=== PATIENT | male | born 1965 | race African-American/Black ===

== ENCOUNTER 2019-04-20 22:20 | Emergency (ER) | payer MEDICAID, OTHER ==
[~2019-04-20] VITALS: Ht 188 cm; Wt 137.4 kg
[2019-04-20 22:40] VITALS: BP 135/84
[2019-04-20] MEDS ORDERED: Haloperidol 5mg/ml Inj IM ONE (23:00)
[2019-04-21 00:01] LABS: APPEARANCE,URINE CLEAR; BILIRUBIN, URINE NEGATIVE (NEGATIVE); GLUCOSE, URINE (UA) NEGATIVE (NEGATIVE); KETONES,URINE NEGATIVE (NEGATIVE); LEUKOCYTE ESTERASE ,URINE 1+ (NEGATIVE); NITRITE,URINE NEGATIVE (NEGATIVE); PH,URINE 5 (4.5-8.0); PROTEIN,URINE 2+ (NEGATIVE); UROBILINOGEN,URINE 8 MG/DL (0.0-1.0)
--- NOTE | 2019-04-21 00:01 | Emergency Room Report ---
History of Present Illness General Chief Complaint: Behavioral Complaint Source: Patient, Medical Record Present Illness HPI This is a 53-year-old male who was homeless and also history of schizophrenia and drug abuse. He is currently in the group home. This gentleman with chief complaint of altered mental status. His behavior is erratic and not answering question appropriately. There is no trauma. He is currently being treated for cellulitis and gangrene of his right great toe. Patient denies any alcohol or drugs. Denies any other complaint. Allergies: Coded Allergies: No Known Allergies (Unverified , 04/20/19) Patient History Past Medical History: see triage record, old chart reviewed, psych hx Past Surgical History: none Pertinent Family History: none Social History: Denies: smoking Immunizations: other Reviewed Nursing Documentation: PMH: Agreed; PSxH: Agreed Nursing Documentation-PMH Hx Cardiac Problems: Yes - CHF; AHD; Fe Defficiency Anemia; Thrombocytopenia Hx Diabetes: Yes History Of Psychiatric Problem: Yes - Bipolar;Schizophrenia; Major Depressive Disorder Review of Systems Eye: Denies: eye pain, blurred vision ENT: Denies: ear pain, nose congestion, throat swelling Respiratory: Denies: cough, shortness of breath Cardiovascular: Denies: chest pain, palpitations Gastrointestinal: Denies: abdominal pain, diarrhea, nausea, vomiting Musculoskeletal: Denies: back pain, joint pain Skin: Denies: rash Neurological: Denies: headache, numbness Endocrine: Denies: increased thirst, increased urine Hematologic/Lymphatic: Denies: easy bruising All Other Systems: negative except mentioned in HPI Physical Exam Vital Signs Date Time Temp Pulse Resp B/P (MAP) Pulse Ox O2 Delivery O2 Flow Rate FiO2 04/20/19 22:23 97.5 77 18 135/84 (101) 99 Room Air Vitals unremarkable Sp02 EP Interpretation: reviewed, normal General Appearance: well appearing, no apparent distress, alert Head: normocephalic, atraumatic Eyes: bilateral eye PERRL, bilateral eye EOMI ENT: hearing grossly normal, normal pharynx Neck: full range of motion, supple, no meningismus Respiratory: chest non-tender, lungs clear, normal breath sounds Cardiovascular #1: regular rate, rhythm, no murmur Gastrointestinal: normal bowel sounds, non tender, no mass, no organomegaly, no bruit, non-distended Musculoskeletal: back normal, gait/station normal, normal range of motion, other - Right foot: He has ulceration and drainage to the great toe. This is chronic. Neurologic: alert, oriented x3 Psychiatric: other - flat affect. Medical Decision Making Diagnostic Impression: Primary Impression: Behavioral change Additional Impressions: Cocaine abuse Methamphetamine abuse ER Course Patient presents with altered mental status. This probably secondary to cocaine and methamphetamine abuse. He did admit to methamphetamine abuse to the medical records field technician. No focal deficit. Not suicidal homicidal. Will discharge back to the group home. CT/MRI/US Diagnostic Results CT/MRI/US Diagnostic Results : Imaging Test Ordered: CT head Impression Per radiologist negative Last Vital Signs Date Time Temp Pulse Resp B/P (MAP) Pulse Ox O2 Delivery O2 Flow Rate FiO2 04/20/19 22:23 97.5 77 18 135/84 (101) 99 Room Air Status: improved Disposition: XFER SNF Condition: Stable Referrals: Dante Thompson MD (PCP) Additional Instructions: Abstain from drugs. Follow-up with your doctor in 7 days. Continue with current therapy for foot infection. Return if worse. Danny Harmon MD Apr 21, 2019 00:01
[2019-04-21 00:03] LABS: BASOPHILS % (AUTO) 0.7 % (0.0-2.0); HEMATOCRIT 37.4 % (42.0-52.0); HEMOGLOBIN 12.4 G/DL (14.2-18.0); LYMPHOCYTES % (AUTO) 31.1 % (20.0-45.0); MEAN CORPUSCULAR VOLUME 84 FL (80-99); MONOCYTES % (AUTO) 8.4 % (1.0-10.0); NEUTROPHILS % (AUTO) 58.7 % (45.0-75.0); PLATELET COUNT 199 K/UL (150-450); RED BLOOD COUNT 4.46 M/UL (4.70-6.10); WHITE BLOOD COUNT 7.9 K/UL (4.8-10.8)
[2019-04-21 00:06] LABS: COLOR,URINE YELLOW
[2019-04-21 00:17] LABS: ANION GAP 13 mmol/L (5-15); BLOOD UREA NITROGEN 27 mg/dL (7-18); CALCIUM 9.3 MG/DL (8.5-10.1); CARBON DIOXIDE 21 MMOL/L (21-32); CHLORIDE 106 MMOL/L (98-107); CREATININE 1.4 MG/DL (0.55-1.30); POTASSIUM 4.4 MMOL/L (3.5-5.1); SODIUM 140 MMOL/L (136-145)
--- NOTE | 2019-04-21 00:57 | Diagnostic Imaging Report ---
Indications: Altered mental status Technique: Spiral acquisitions obtained through the brain. Angled axial and coronal 5 x 5 mm slices were reconstructed. Total dose length product 1485.17 mGycm. CTDI vol(s) 70.38 mGy. Dose reduction achieved using automated exposure control Comparison: None. Findings: Ventricles are somewhat prominent for age. There is some periventricular deep white matter low-attenuation consistent with chronic microvascular ischemic change. Normal valdes-white differentiation. No acute intracranial hemorrhage or edema. No mass effect or midline shift. Intact calvarium. Visualized orbits and sinuses are unremarkable. The mastoids are clear Impression: Minimal senescent changes. Negative for acute intracranial bleed or mass effect This agrees with the preliminary interpretation provided overnight by [facility]. The CT scanner at [facility] is accredited by the [employer] and the scans are performed using protocols designed to limit radiation exposure to as low as reasonably achievable to attain images of sufficient resolution adequate for diagnostic evaluation.
[2019-04-21 02:07] VITALS: BP 137/86
[2019-04-21 03:36] VITALS: BP 114/98
== END 2019-04-21 03:42 ==
LOC: EDBD 22:20 → EMR 22:34
DX: F15.10 Other stimulant abuse, uncomplicated (principal); F91.9 Conduct disorder, unspecified; F14.10 Cocaine abuse, uncomplicated; R41.82 Altered mental status, unspecified; F20.9 Schizophrenia, unspecified; F31.9 Bipolar disorder, unspecified; I50.9 Heart failure, unspecified; E11.52 Type 2 diabetes mellitus with diabetic peripheral angiopathy with gangrene; I96 Gangrene, not elsewhere classified
CPT/HCPCS: 36415; 70450; 80048; 80307; 81001; 85025; 96372; 99284; G0480; J1630; 80329

== ENCOUNTER 2019-09-13 10:19 | Inpatient (IN) | payer MEDICAID, OTHER ==
[~2019-09-13] VITALS: Ht 188 cm; Wt 137.0 kg
[2019-09-13] MEDS ORDERED: OXYBUTYNIN CHLOR5 M1 ORAL (10:45)
[2019-09-13] MEDS ORDERED: ADALAT20 MG ORAL (10:45)
[2019-09-13] MEDS ORDERED: LISINOPRIL40 MG ORAL (10:45)
[2019-09-13] MEDS ORDERED: CYMBALTA30 MG ORAL (10:45)
[2019-09-13] MEDS ORDERED: METFORMIN HCL500 M1 ORAL (10:45)
[2019-09-13] MEDS ORDERED: ACETAMINOPHEN-1 EAC1 ORAL (10:45)
[2019-09-13] MEDS ORDERED: BUPROPION HCL100 MG ORAL (10:45)
--- NOTE | 2019-09-13 10:58 | Emergency Room Report ---
History of Present Illness General Chief Complaint: Wound Recheck/Suture Removal Source: Patient, Caregiver Present Illness HPI Patient presents the emergency room with friend who is reported to be information security consultant Patient himself has difficulty concentrating and providing appropriate input however information security consultant reports that the patient [facility] from [place] there was some difficulty Obtaining contact with insurance home health nurse finally did come out yesterday and reported that she was not able to care for this Given the area and infection Personal Injury Legal Assistant reports that the dressing was in place for the past 5 days and they had not seen the area themselves patient has had previous problems and infections with his feet Allergies: Coded Allergies: No Known Allergies (Unverified , 04/20/19) Patient History Past Medical History: see triage record Reviewed Nursing Documentation: PMH: Agreed; PSxH: Agreed Nursing Documentation-PMH Past Medical History: No History, Except For Hx Cardiac Problems: Yes - CHF; AHD; Fe Defficiency Anemia; Thrombocytopenia Hx Diabetes: Yes Review of Systems All Other Systems: negative except mentioned in HPI Physical Exam Vital Signs Date Time Temp Pulse Resp B/P (MAP) Pulse Ox O2 Delivery O2 Flow Rate FiO2 09/13/19 10:22 97.5 123 20 139/94 (109) 98 Room Air Sp02 EP Interpretation: reviewed, normal General Appearance: mild distress - Patient appears confused Head: normocephalic, atraumatic Eyes: bilateral eye PERRL, bilateral eye EOMI ENT: EOM grossly intact, normal pharynx Neck: supple Respiratory: lungs clear, no respiratory distress, no retraction Cardiovascular #1: tachycardia Gastrointestinal: non tender, soft Musculoskeletal: other - Significant anomaly to both feet worse on the right side with discharge from open wounds increased erythema and fluctuance in both lower extremity deviation on the right ankle, Neurologic: oriented x3 - Patient is able to be appropriately addressed with repeated questioning and is oriented to self and place and time however has difficulty forming words and appears mildly confused Skin: other - Significant edema erythema and fluctuance with discharge from both feet right side worse images are being obtained for medical record-keeping Lymphatic: no adenopathy Procedures Critical Care Time Critical Care Time 40 minutes for multiple re-evaluations critical presentation concerning for sepsis and cardiopulmonary arrest not including any procedural time Central Line Central Line : Consent: Emergent Central Line Lumen: triple Maximal Sterile Barrier Tech: yes cap, yes mask, yes sterile gown, yes sterile gloves, yes large sterile sheet, yes hand hygiene, yes chlorhexidine prep Central Line Postion: femoral (R) Anesthesia: Lidocaine cc's of anesthesia: 4 Complications: none Central Line Post Position: sutured Attempts: One Patient Tolerated: Well Complications: None Medical Decision Making Diagnostic Impression: Primary Impression: Sepsis Additional Impressions: Cellulitis in diabetic foot Severe sepsis ER Course Given the patient's history and presentation multiple differentials and consideration Including but not limited to diabetic foot cellulitis hyperglycemia,, osteomyelitis Patient presents and concerning fashion tachycardic significant Wound infections There was no IV established therefore central line was required please refer to the note for that Patient also shows positive amphetamine Further hydration and antibiotics are provided patient's admitting physician is in the emergency room and patient admitted for further care Labs Test 09/13/19 12:00 09/13/19 12:30 Urine Color Brown Urine Appearance Clear Urine pH 6 (4.5-8.0) Urine Specific Mason 1.015 (1.005-1.035) Urine Protein 2+ (NEGATIVE) Urine Glucose (UA) Negative (NEGATIVE) Urine Ketones Negative (NEGATIVE) Urine Blood 1+ (NEGATIVE) Urine Nitrite Negative (NEGATIVE) Urine Bilirubin Negative (NEGATIVE) Urine Urobilinogen 4 MG/DL (0.0-1.0) Urine Leukocyte Esterase 1+ (NEGATIVE) Urine RBC 0-2 /HPF (0 - 0) Urine WBC 0-2 /HPF (0 - 0) Urine Squamous Epithelial Cells Occasional /LPF Urine Amorphous Sediment Occasional /LPF (NONE) Urine Bacteria Occasional /HPF (NONE) Urine Opiates Screen Negative (NEGATIVE) Urine Barbiturates Screen Negative (NEGATIVE) Phencyclidine (PCP) Screen Negative (NEGATIVE) Urine Amphetamines Screen Positive (NEGATIVE) Urine Benzodiazepines Screen Negative (NEGATIVE) Urine Cocaine Screen Negative (NEGATIVE) Urine Marijuana (THC) Screen Positive (NEGATIVE) White Blood Count 7.4 K/UL (4.8-10.8) Red Blood Count 3.90 M/UL (4.70-6.10) Hemoglobin 11.3 G/DL (14.2-18.0) Hematocrit 33.8 % (42.0-52.0) Mean Corpuscular Volume 87 FL (80-99) Mean Corpuscular Hemoglobin 28.8 PG (27.0-31.0) Mean Corpuscular Hemoglobin Concent 33.3 G/DL (32.0-36.0) Red Cell Distribution Width 13.6 % (11.6-14.8) Platelet Count 264 K/UL (150-450) Mean Platelet Volume 5.7 FL (6.5-10.1) Neutrophils (%) (Auto) 70.6 % (45.0-75.0) Lymphocytes (%) (Auto) 17.7 % (20.0-45.0) Monocytes (%) (Auto) 10.2 % (1.0-10.0) Eosinophils (%) (Auto) 0.8 % (0.0-3.0) Basophils (%) (Auto) 0.7 % (0.0-2.0) Prothrombin Time 11.1 SEC (9.30-11.50) Prothromb Time International Ratio 1.0 (0.9-1.1) Activated Partial Thromboplast Time 27 SEC (23-33) Sodium Level 133 MMOL/L (136-145) Potassium Level 4.4 MMOL/L (3.5-5.1) Chloride Level 101 MMOL/L (98-107) Carbon Dioxide Level 23 MMOL/L (21-32) Anion Gap 9 mmol/L (5-15) Blood Urea Nitrogen 14 mg/dL (7-18) Creatinine 0.9 MG/DL (0.55-1.30) Estimat Glomerular Filtration Rate > 60 mL/min (>60) Glucose Level 93 MG/DL (74-106) Lactic Acid Level 1.20 mmol/L (0.4-2.0) Calcium Level 8.7 MG/DL (8.5-10.1) Total Bilirubin 1.2 MG/DL (0.2-1.0) Direct Bilirubin 0.8 MG/DL (0.0-0.3) Aspartate Amino Transf (AST/SGOT) 49 U/L (15-37) Alanine Aminotransferase (ALT/SGPT) 53 U/L (12-78) Alkaline Phosphatase 82 U/L (46-116) Total Creatine Kinase 193 U/L (26-308) Creatine Kinase MB 2.2 NG/ML (0.0-3.6) Creatine Kinase MB Relative Index 1.1 Troponin I 0.000 ng/mL (0.000-0.056) Pro-B-Type Natriuretic Peptide 97 pg/mL (0-125) Total Protein 8.2 G/DL (6.4-8.2) Albumin 2.8 G/DL (3.4-5.0) Globulin 5.4 g/dL Albumin/Globulin Ratio 0.5 (1.0-2.7) Lipase 1088 U/L (73-393) Rhythm Strip Diag. Results EP Interpretation: yes Rate: 110 Rhythm: no PVC's, no ectopy, other - Sinus tach Chest X-Ray Diagnostic Results Chest X-Ray Diagnostic Results : Chest X-Ray Ordered: Yes # of Views/Limited/Complete: 1 View Indication: Chest Pain EP Interpretation: Yes Interpretation: no pneumothorax, other - Lower lobe atelectasis, consider infiltrate Impression: Other - Left lower lobe atelectasis consider infiltrate Electronically Signed by: Keesha Murphy DO Other X-Ray Diagnostic Results Other X-Ray Diagnostic Results #1: X-Ray ordered: right Foot # of Views/Limited Vs Complete: 3 View Indication: Pain EP Interpretation: Yes Interpretation: no dislocation, no fractures, other - Soft tissue changes Impression: Other - Soft tissue changes Electronically Signed by: Keesha Murphy DO Other X-Ray Diagnostic Results #2: X-Ray ordered: Left foot # of Views/Limited Vs Complete: 3 View Indication: Pain EP Interpretation: Yes Interpretation: no dislocation, no fractures, other - Soft tissue changes Impression: Other - Soft tissue changes Electronically Signed by: Keesha Murphy DO Last Vital Signs Date Time Temp Pulse Resp B/P (MAP) Pulse Ox O2 Delivery O2 Flow Rate FiO2 09/13/19 10:22 97.5 123 20 139/94 (109) 98 Room Air Status: improved Disposition: ADMITTED INPATIENT Condition: Critical Keesha Murphy DO Sep 13, 2019 10:58
[2019-09-13] MEDS ORDERED: cefTRIAXone 1 GM in NS 55 ML IVPB ONE (11:00)
[2019-09-13] MEDS ORDERED: Vancomycin 1.5gm/NS Premix 275 ML IVPB ONE (11:00)
[2019-09-13 11:14] VITALS: BP 164/98
[2019-09-13] MEDS ORDERED: Lidocaine 1% Plain 30 ml INJ ONE (12:15)
--- NOTE | 2019-09-13 12:36 | Diagnostic Imaging Report ---
EXAM: XR Chest, 1 View CLINICAL HISTORY: CP TECHNIQUE: Frontal view of the chest. COMPARISON: None FINDINGS: Hardware: None. Lungs/pleura: Left basilar opacity. No focal consolidation. No pleural effusion or pneumothorax. Heart/mediastinum: Normal. No cardiomegaly. Soft tissues: Unremarkable. Bones: No acute fracture. Upper abdomen: Normal. IMPRESSION: Left basilar opacity may represent atelectasis versus pneumonia.
--- NOTE | 2019-09-13 12:37 | Diagnostic Imaging Report ---
EXAM: XR Left Foot Complete, 3 or More Views CLINICAL HISTORY: SWELL TECHNIQUE: Frontal, lateral and oblique views of the left foot. COMPARISON: None FINDINGS: Bones/joints: No displaced fracture or dislocation identified. Osteopenia. Plantar calcaneal spur. Degenerative changes of the left first MTP joint. Degenerative changes of the midfoot and hindfoot. Soft tissues: Soft tissue swelling. IMPRESSION: 1. No displaced fracture or dislocation identified. 2. Soft tissue swelling.
--- NOTE | 2019-09-13 12:39 | Diagnostic Imaging Report ---
EXAM: XR Right Foot Complete, 3 or More Views CLINICAL HISTORY: SWELL TECHNIQUE: Frontal, lateral and oblique views of the right foot. COMPARISON: None FINDINGS: Bones/joints: No displaced fracture or dislocation identified. Osteopenia. Plantar calcaneal spur. Degenerative changes of the right first MTP joint. Degenerative changes of the midfoot. Soft tissues: Soft tissue swelling. Question soft tissue wound along the medial midfoot. IMPRESSION: 1. No displaced fracture or dislocation identified. 2. Soft tissue swelling. Question soft tissue wound along the medial midfoot.
[2019-09-13 12:42] LABS: APPEARANCE,URINE CLEAR; BILIRUBIN, URINE NEGATIVE (NEGATIVE); COLOR,URINE BROWN; GLUCOSE, URINE (UA) NEGATIVE (NEGATIVE); KETONES,URINE NEGATIVE (NEGATIVE); LEUKOCYTE ESTERASE ,URINE 1+ (NEGATIVE); NITRITE,URINE NEGATIVE (NEGATIVE); PH,URINE 6 (4.5-8.0); PROTEIN,URINE 2+ (NEGATIVE); UROBILINOGEN,URINE 4 MG/DL (0.0-1.0)
[2019-09-13 12:52] LABS: BASOPHILS % (AUTO) 0.7 % (0.0-2.0); EOSINOPHILS % (AUTO) 0.8 % (0.0-3.0); HEMATOCRIT 33.8 % (42.0-52.0); HEMOGLOBIN 11.3 G/DL (14.2-18.0); LYMPHOCYTES % (AUTO) 17.7 % (20.0-45.0); MEAN CORPUSCULAR VOLUME 87 FL (80-99); MONOCYTES % (AUTO) 10.2 % (1.0-10.0); NEUTROPHILS % (AUTO) 70.6 % (45.0-75.0); PLATELET COUNT 264 K/UL (150-450); RED CELL DISTRIBUTION WIDTH 13.6 % (11.6-14.8); WHITE BLOOD COUNT 7.4 K/UL (4.8-10.8)
[2019-09-13 13:01] LABS: ANION GAP 9 mmol/L (5-15); BLOOD UREA NITROGEN 14 mg/dL (7-18); CALCIUM 8.7 MG/DL (8.5-10.1); CARBON DIOXIDE 23 MMOL/L (21-32); CHLORIDE 101 MMOL/L (98-107); CREATININE 0.9 MG/DL (0.55-1.30); POTASSIUM 4.4 MMOL/L (3.5-5.1); SODIUM 133 MMOL/L (136-145)
[2019-09-13 13:30] LABS: ALANINE AMINOTRANSFERASE 53 U/L (12-78); ALBUMIN 2.8 G/DL (3.4-5.0); ALBUMIN/GLOBULIN RATIO 0.5 (1.0-2.7); ALKALINE PHOSPHATASE 82 U/L (46-116); ASPARTATE AMINO TRANSFERASE 49 U/L (15-37); BILIRUBIN,TOTAL 1.2 MG/DL (0.2-1.0); CKMB 2.2 NG/ML (0.0-3.6); CREATINE KINASE 193 U/L (26-308)
[2019-09-13 13:35] LABS: BILIRUBIN,DIRECT 0.8 MG/DL (0.0-0.3)
[2019-09-13 15:45] VITALS: BP 149/80
[2019-09-13 20:00] VITALS: BP 125/75
[2019-09-13] MEDS: NovoLOG Insulin Flexpen SUBQ SCH (20:13)
[2019-09-13] MEDS: Piperacillin/Tazobactam 3.375 GM in NS 110 ML IVPB SCH (20:44)
[2019-09-13] MEDS ORDERED: traMADol 50mg tab ORAL PRN (20:45)
[2019-09-13] MEDS ORDERED: Dyna-Hex 2% Top Sol 2oz TOPIC SCH ×2 (21:00→21:45)
[2019-09-13] MEDS: Heparin 5000 units/ml inj SUBQ SCH (21:54)
--- NOTE | 2019-09-13 22:15 | History and Physical Report ---
DATE OF ADMISSION: 09/13/2019 HISTORY OF PRESENT ILLNESS: This is a 54-year-old male, who came from the emergency room where he came from home where he has multiple sores on both leg, edema, generalized weakness, obtunded. Also the patient's drug screen positive for PCP and other substance. The patient is combative, cannot give any history. He also had a sore on the right foot and looks like he is not able to care himself and not taking care of himself. PAST MEDICAL HISTORY: Cannot be obtained, but from the records diabetes, hypertension, history of substance abuse. MEDICATIONS: None. ALLERGIES: None. FAMILY HISTORY: Noncontributory. SOCIAL HISTORY: Lives at home by himself. PHYSICAL EXAMINATION: GENERAL: This is elderly overweight male, currently in bed, combative, cannot give any history. VITAL SIGNS: Blood pressure was , pulse 110, respirations 18 to 24, temperature, no fever. SKIN: Poor skin turgor. HEENT: Eyes are open. NECK: Supple. CHEST: Bilateral few crackles. CARDIOVASCULAR: Regular rhythm. No gallop. No murmur. ABDOMEN: Soft. Positive bowel sounds. EXTREMITIES: Right leg has multiple sores on the ankle edema. GENITOURINARY: Deferred. LABORATORY DATA: White counts are high. BUN and creatinine also slightly high. Drug screen positive for crack. ASSESSMENT: 1. Multiple sores on the foot. 2. Drug abuse. 3. Diabetes. 4. Hypertension. 5. Altered mental status, probably secondary to the drugs. PLAN: We will admit on VADIM. Start IV fluid, IV antibiotics, sliding scale, Accu-Chek, 2 g sodium diet. Consider Surgery consult as well as Podiatry consult. Shubham Perez M.D. DR: SERA JOB#: [id number] CC:
[2019-09-13] MEDS ORDERED: Morphine Sulfate 2mg/ml Inj(IV/IM USE ONLY) IVP PRN (22:45)
[2019-09-13] MEDS ORDERED: Metoprolol Tartrate 100mg tab ORAL ONE (23:15)
[2019-09-13] MEDS: Metoprolol Tartrate 100mg tab ORAL SCH (23:24)
--- NOTE | 2019-09-13 23:30 | Consultation ---
DATE OF CONSULTATION: 09/13/2019 CARDIOLOGY CONSULTATION CONSULTING PHYSICIAN: Ronal Reeves M.D. REASON FOR CONSULTATION: Tachycardia. HISTORY OF PRESENT ILLNESS: This is a 54-year-old who resides [facility]. He was admitted with multiple leg sores and associated pain. He also has had generalized weakness and altered mentation. He has had episodes of agitation. He had a positive drug screen for PCP and marijuana. PAST MEDICAL HISTORY: Includes type 2 diabetes, hypertension, neurogenic bladder, and substance abuse. ALLERGIES: None. MEDICATIONS: Reviewed. FAMILY HISTORY: Noncontributory. SOCIAL HISTORY: Notable for substance abuse as noted above. He denies alcohol use. REVIEW OF SYSTEMS: Cannot be reliably obtained. PHYSICAL EXAMINATION: GENERAL: Moderately obese awake and alert. VITAL SIGNS: Blood pressure 106/60, heart rate 150, respiratory rate 20, and afebrile. SKIN: Notable for wounds on his foot including the ankle. Dressings are now in place, but pictures are noted. HEENT: Oropharynx clear. NECK: Supple. LUNGS: Clear. CARDIAC: Regular rhythm. Rapid rate. Normal S1 and S2. ABDOMEN: Soft. EXTREMITIES: Trace edema. LABORATORY DATA: White count 7.4 and hemoglobin 11.3. Sodium 133, potassium 4.4, BUN 14, creatinine 0.9, and bicarbonate 23. Lactic acid 1.2. Troponin negative. CK 193. Albumin 2.8. Lipase 1088. IMPRESSION: 1. Dehydration. 2. Hyponatremia. 3. Substance abuse. 4. Wound infection. 5. Tachycardia due to beta-john withdrawal and pain. 6. Hypertensive heart disease. 7. Type 2 diabetes mellitus. PLAN: 1. Resume beta-john. 2. Pain control. 3. Antimicrobials. 4. Wound care. 5. DVT prophylaxis. 6. Venous duplex scan if not already done to assess for possible lower extremity thrombosis. 7. Cautious hydration. Ronal Reeves M.D. DR: MONALISA JOB#: [id number] CC:
[2019-09-14] VITALS: BP 113/60
[2019-09-14] MEDS: Vancomycin 1.5gm/NS Premix IVPB SCH ×3 (02:05→18:07)
[2019-09-14 04:00] VITALS: BP 128/73
[2019-09-14] MEDS: Piperacillin/Tazobactam 3.375 GM in NS 110 ML IVPB SCH ×3 (06:24→21:19)
[2019-09-14] MEDS: NovoLOG Insulin Flexpen SUBQ SCH ×4 (06:26→20:19)
[2019-09-14] MEDS: Heparin 5000 units/ml inj SUBQ SCH ×3 (06:26→21:11)
[2019-09-14 08:00] VITALS: BP 155/87
[2019-09-14] MEDS ORDERED: METOPROLOL TAR100 M1 ORAL (08:13)
[2019-09-14] MEDS ORDERED: DULoxetine 30mg cap ORAL SCH (09:00)
[2019-09-14] MEDS ORDERED: Oxybutynin 5mg tab ORAL SCH (09:00)
[2019-09-14] MEDS ORDERED: Lisinopril 20mg tab ORAL SCH (09:00)
[2019-09-14] MEDS ORDERED: BuPROPion SR 100mg tab ORAL SCH (09:00)
[2019-09-14] MEDS: Metoprolol Tartrate 100mg tab ORAL SCH ×2 (09:05→20:25)
[2019-09-14] MEDS: metFORMIN 500mg tab ORAL SCH ×2 (11:43→16:30)
[2019-09-14] MEDS ORDERED: LORazepam 0.5mg tab ORAL PRN ×2 (11:45→23:45)
[2019-09-14 12:00] VITALS: BP 131/68
--- NOTE | 2019-09-14 13:59 | Consultation ---
History of Present Illness General Date patient seen: Sep 14, 2019 Chief Complaint: Wound Recheck/Suture Removal Present Illness HPI 54-year-old male who came from the emergency room at [facility] with multiple wounds on both leg, edema, generalized weakness, obtunded. Noted to have drug screen positive for PCP and other substance. The patient is combative, cannot give any history. He also had a sore on the right foot and looks like he is not able to care himself and not taking care of himself. surgery called to evaluate and assist with care. labs noted, imaging reviewed, exam completed Allergies: Coded Allergies: No Known Allergies (Unverified , 04/20/19) Medication History Scheduled Bupropion Hcl* (Bupropion Hcl*), 100 MG ORAL DAILY, (Reported) Duloxetine Hcl* (Cymbalta*), 30 MG ORAL BID, (Reported) Lisinopril* (Lisinopril*), 40 MG ORAL DAILY, (Reported) Metformin Hcl* (Metformin Hcl*), 500 MG ORAL TWICE A DAY, (Reported) Metoprolol Tartrate* (Metoprolol Tartrate*), 100 MG ORAL EVERY 12 HOURS, ( Reported) Nifedipine (Nifedipine*), 30 MG ORAL DAILY, (Reported) Oxybutynin Chloride (Oxybutynin Chloride), 5 MG ORAL DAILY, (Reported) Scheduled PRN Acetaminophen With Codeine (T#3) (Tylenol #3 Tab*), 1 TAB ORAL BID PRN for Pain Scale (3-5), (Reported) Patient History Limited by: medical condition History Provided By: PMD Healthcare decision maker Resuscitation status Advanced Directive on File Past Medical/Surgical History Past Medical/Surgical History: (1) Sepsis (2) Cellulitis in diabetic foot Review of Systems All Other Systems: negative except mentioned in HPI ROS Narrative cannot obtain given medical condition Physical Exam General Appearance: no apparent distress Lines, tubes and drains: peripheral HEENT: mucous membranes moist Neck: normal inspection Respiratory/Chest: no respiratory distress, no accessory muscle use Cardiovascular/Chest: normal rate Abdomen: soft, no organomegaly, no mass Extremities: inflammation, slow capillary refill, trace edema, other Skin Exam: warm/dry Neurologic: alert, disoriented, other Last 24 Hour Vital Signs Date Time Temp Pulse Resp B/P (MAP) Pulse Ox O2 Delivery O2 Flow Rate FiO2 09/14/19 12:00 90 09/14/19 12:00 99.4 85 24 131/68 (89) 95 09/14/19 09:05 128/73 09/14/19 09:05 98 128/73 09/14/19 08:00 99.5 103 23 155/87 (109) 96 09/14/19 08:00 99 09/14/19 07:50 Room Air 09/14/19 04:00 98 09/14/19 04:00 98.4 97 20 128/73 (91) 100 09/14/19 00:00 101.0 144 20 113/60 (77) 100 09/13/19 23:24 144 113/60 09/13/19 23:21 145 09/13/19 21:00 Room Air 09/13/19 20:00 99.9 140 24 125/75 (92) 98 09/13/19 19:13 128 09/13/19 18:27 97.5 114 19 164/98 100 Room Air 09/13/19 15:50 Room Air 09/13/19 15:45 98.8 117 20 149/80 (103) 100 Intake and Output 09/13/19 09/14/19 19:00 07:00 Intake Total 1585.0 ml Output Total 300 ml 1100 ml Balance -300 ml 485.0 ml Intake Oral 500 ml IV Total 1085.0 ml Output Urine Total 300 ml 1100 ml # Bowel Movements 1 1 Height (Feet): 6 Height (Inches): 2.00 Weight (Pounds): 302 Medications Current Medications Medications (Trade) Dose Ordered Sig/Lamont Route PRN Reason Start Time Stop Time Status Last Admin Dose Admin Acetaminophen (Tylenol) 650 mg Q6H PRN ORAL Mild Pain/Temp > 100.5 09/14/19 08:00 10/14/19 07:59 Bupropion HCl (Wellbutrin SR) 100 mg DAILY ORAL 09/14/19 09:00 10/14/19 08:59 09/14/19 09:05 Chlorhexidine Gluconate (Crystal-Hex 2%) 1 applic DAILY@1999 TOPIC 09/13/19 21:00 10/13/19 20:59 09/13/19 21:51 Dextrose (Dextrose 50%) 25 ml Q30M PRN IV Hypoglycemia 09/13/19 19:00 2/25/20 18:59 Dextrose (Dextrose 50%) 50 ml Q30M PRN IV Hypoglycemia 09/13/19 19:00 10/13/19 18:59 Duloxetine HCl (Cymbalta) 30 mg DAILY ORAL 09/15/19 09:00 10/15/19 08:59 Heparin Sodium (Porcine) (Heparin 5000 units/ml) 5,000 units EVERY 8 HOURS SUBQ 09/13/19 22:00 10/13/19 21:59 09/14/19 06:26 Insulin Aspart (NovoLOG) BEFORE MEALS AND HS SUBQ 09/13/19 21:00 10/13/19 20:59 Lisinopril (PriniviL) 40 mg DAILY ORAL 09/14/19 09:00 10/14/19 08:59 09/14/19 09:05 Lorazepam (Ativan) 2 mg Q6H PRN ORAL For Anxiety 09/14/19 11:45 09/21/19 11:44 Metformin HCl (Glucophage) 500 mg BIDLS ORAL 09/14/19 11:30 10/14/19 11:29 09/14/19 11:43 Metoprolol Tartrate (Lopressor) 100 mg EVERY 12 HOURS ORAL 09/13/19 22:45 10/13/19 22:44 09/14/19 09:05 Morphine Sulfate (Morphine Sulfate) 2 mg Q6H PRN IVP For breakthru Pain 09/13/19 22:45 09/20/19 22:44 Ondansetron HCl (Zofran) 4 mg Q6H PRN IVP Nausea & Vomiting 09/13/19 19:00 10/13/19 18:59 Oxybutynin Chloride (Ditropan) 5 mg DAILY ORAL 09/14/19 09:00 10/14/19 08:59 09/14/19 09:05 Piperacillin Sod/ Tazobactam Sod 3.375 gm/Sodium Chloride 110 ml @ 27.5 mls/hr EVERY 8 HOURS IVPB 09/13/19 20:00 09/18/19 19:59 09/14/19 06:24 Quetiapine Fumarate (SEROqueL) 50 mg TID ORAL 09/14/19 13:00 10/14/19 12:59 Sodium Chloride 1,000 ml @ 100 mls/hr Q10H IV 09/13/19 23:00 09/15/19 18:00 09/14/19 09:06 Tramadol HCl (Ultram) 50 mg Q4H PRN ORAL For Pain 09/13/19 20:45 09/20/19 20:44 09/13/19 20:46 Vancomycin HCl (Vanco rx to dose) 1 ea DAILY PRN MISC Per rx protocol 09/13/19 19:00 10/13/19 18:59 Vancomycin/Sodium Chloride 275 ml @ 137.5 mls/ hr Q8HR@0200,1000,1800 IVPB 09/14/19 02:00 09/19/19 01:59 09/14/19 11:43 Assessment/Plan Problem List: (1) Sepsis Assessment & Plan: febrile, tachycardic, htn elevated lip abnormal lft's chronic wounds will provide local wound care needs improved hygiene okay for diet Abdominal US ordered will follow with recs. thank you ICD Codes: A41.9 - Sepsis, unspecified organism SNOMED: 13922589 (2) Cellulitis in diabetic foot ICD Codes: E11.628 - Type 2 diabetes mellitus with other skin complications; L03.119 - Cellulitis of unspecified part of limb SNOMED: 260771540, [id number] (3) Pancreatitis Assessment & Plan: see above us ordered trend labs thank you ICD Codes: K85.90 - Acute pancreatitis without necrosis or infection, unspecified SNOMED: 10982837 Farhat Joaquin Sep 14, 2019 13:59
[2019-09-14 16:00] VITALS: BP 115/73
--- NOTE | 2019-09-14 18:45 | Progress Note ---
DATE: 09/14/2019 SUBJECTIVE: The patient is a 54-year-old male came to the emergency room for multiple ulcers on the leg and altered. Drug screen was positive. The patient is currently still sleeping, wakes up and asking for pain medication and more fluid. PHYSICAL EXAMINATION: VITAL SIGNS: Blood pressure is 131/68, pulse 85, respirations 24, no fever. HEENT: NAD. CHEST: Bilateral clear. CARDIOVASCULAR: Regular rhythm. No gallop. No murmur. ABDOMEN: Soft. EXTREMITIES: Right leg had multiple abscess. GENITOURINARY: Deferred. LABORATORY AND DIAGNOSTIC DATA: White count 7.4, hemoglobin 11. Chemistry panel, sodium 133, potassium 4.4, BUN 14, creatinine 0.9. Lipase . X-ray of foot showing no displaced fracture, dislocation, soft tissue swelling. Chest x-ray showing left bibasilar atelectasis, pneumonia. ASSESSMENT: 1. Cellulitis. 2. Leg ulcer. 3. Substance abuse. 4. Hypertension. 5. Diabetes. 6. Depression. PLAN: 1. Continue current treatment. 2. The patient is on vancomycin. 3. Continue metoprolol. 4. Consider Podiatry consult . 5. Consider Psych consult. Shubham Perez M.D. DR: Jam JOB#: [id number] CC:
[2019-09-14 20:00] VITALS: BP 95/58
--- NOTE | 2019-09-14 20:01 | Progress Note ---
DATE: 09/14/2019 CARDIOLOGY PROGRESS NOTE SUBJECTIVE: The patient continues to complain of leg pain. He had been restarted last night on an additional pain medication as well as his beta-john therapy. His heart rates have improved. PHYSICAL EXAMINATION: VITAL SIGNS: Blood pressure 131/68, pulse 85, respirations 24, and T max 100.6. LUNGS: Bilateral breath sounds. HEART: Regular rhythm and rate. Normal S1, S2. ABDOMEN: Soft. EXTREMITIES: Trace dependent edema. Wounds have dressing in place noted. IMPRESSION: 1. Lower extremity wounds. 2. Secondary sinus tachycardia, resolved. 3. Cocaine abuse. 4. Peripheral artery disease. 5. Acute and chronic pain. 6. Moderate protein-calorie malnutrition. PLAN: 1. Continue antimicrobials and wound care. 2. Recheck laboratory studies. 3. Discontinue intravenous fluids once rehydrated. 4. Protein supplements. 5. Maintenance dose beta-john. 6. Discontinue telemetry. Ronal Reeves M.D. DR: BELEN JOB#: [id number] CC:
[2019-09-14] MEDS: Dyna-Hex 2% Top Sol 2oz TOPIC SCH (21:08)
[2019-09-15] VITALS: BP 117/75
[2019-09-15] MEDS ORDERED: Vancomycin 1.5gm/NS Premix 275 ML IVPB SCH (02:00)
[2019-09-15 04:00] VITALS: BP 149/86
[2019-09-15 04:39] LABS: BASOPHILS % (AUTO) 0.6 % (0.0-2.0); EOSINOPHILS % (AUTO) 1.4 % (0.0-3.0); HEMATOCRIT 31.5 % (42.0-52.0); HEMOGLOBIN 10.5 G/DL (14.2-18.0); LYMPHOCYTES % (AUTO) 37.4 % (20.0-45.0); MEAN CORPUSCULAR VOLUME 87 FL (80-99); MONOCYTES % (AUTO) 11.4 % (1.0-10.0); NEUTROPHILS % (AUTO) 49.3 % (45.0-75.0); PLATELET COUNT 212 K/UL (150-450); RED BLOOD COUNT 3.61 M/UL (4.70-6.10); RED CELL DISTRIBUTION WIDTH 14.1 % (11.6-14.8); WHITE BLOOD COUNT 5.9 K/UL (4.8-10.8)
[2019-09-15 04:57] LABS: INR 1.1 (0.9-1.1)
[2019-09-15 05:01] LABS: ALANINE AMINOTRANSFERASE 35 U/L (12-78); ALBUMIN 2.1 G/DL (3.4-5.0); ALBUMIN/GLOBULIN RATIO 0.4 (1.0-2.7); ALKALINE PHOSPHATASE 68 U/L (46-116); AMYLASE 74 U/L (25-115); ANION GAP 6 mmol/L (5-15); ASPARTATE AMINO TRANSFERASE 34 U/L (15-37); BILIRUBIN,TOTAL 0.9 MG/DL (0.2-1.0); BLOOD UREA NITROGEN 9 mg/dL (7-18); CALCIUM 8.1 MG/DL (8.5-10.1); CARBON DIOXIDE 24 MMOL/L (21-32); CHLORIDE 109 MMOL/L (98-107); SODIUM 139 MMOL/L (136-145)
[2019-09-15] MEDS: Piperacillin/Tazobactam 3.375 GM in NS 110 ML IVPB SCH ×2 (05:17→13:08)
[2019-09-15] MEDS: NovoLOG Insulin Flexpen SUBQ SCH ×4 (05:22→21:00)
[2019-09-15] MEDS: Heparin 5000 units/ml inj SUBQ SCH ×3 (05:33→21:03)
[2019-09-15 08:00] VITALS: BP 150/89
[2019-09-15] MEDS ORDERED: DULoxetine 30mg cap ORAL SCH (09:00)
[2019-09-15] MEDS: DULoxetine 30mg cap ORAL SCH (09:25)
[2019-09-15] MEDS: Metoprolol Tartrate 100mg tab ORAL SCH ×2 (09:26→21:02)
[2019-09-15] MEDS: Oxybutynin 5mg tab ORAL SCH (09:26)
[2019-09-15] MEDS: BuPROPion SR 100mg tab ORAL SCH (09:26)
[2019-09-15] MEDS: Lisinopril 20mg tab ORAL SCH (09:27)
--- NOTE | 2019-09-15 09:43 | Diagnostic Imaging Report ---
Indication: Right leg pain and right leg wound Technique: Grayscale and duplex images of the bilateral lower extremity veins Comparison: none Findings: Bilaterally, grayscale and duplex images demonstrate no evidence of intraluminal thrombus. Normal phasic Doppler waveforms, demonstrating normal augmentation response and no evidence of valvular insufficiency. Normal compressibility Impression: No evidence of lower extremity deep venous thrombosis bilaterally
--- NOTE | 2019-09-15 10:15 | Consultation ---
DATE OF CONSULTATION: 09/14/2019 CONSULTING PHYSICIAN: Fany Reyes M.D. HISTORY OF PRESENT ILLNESS: This is a 54-year-old male with multiple medical issues including cellulitis, sepsis, admitted to the hospital for medical stabilization. The patient's urine toxicology is positive for methamphetamines. The patient is denying any drug use. The patient is having episodes of agitation. The patient also has been smoking weed. He denies using any drugs. PAST PSYCHIATRIC HISTORY: Denies any history of psychiatric disorder. PAST MEDICAL HISTORY: Diabetes and hypertension. ALLERGIES: No known drug allergies. SUBSTANCE ABUSE HISTORY: As noted above. MENTAL STATUS EXAMINATION: The patient is alert and oriented to times, self, place, situation, and date. Mood is anxious. Affect is flat. Thought process is concrete. Thought content, no suicidal or homicidal ideation. Cognition is intact. Insight and judgment is poor. ASSESSMENT: [place] I 1. Psychotic disorder, NOS. 2. Agitation. 3. Methamphetamine use [place] II Deferred. [place] III Low. PLAN: 1. We will start the patient on Seroquel. 2. We will provide the patient with reality orientation and supportive therapy. Fany Reyes M.D. DR: JADE JOB#: [id number] CC: MALU
--- NOTE | 2019-09-15 11:07 | Diagnostic Imaging Report ---
Indication: Abnormal liver function tests, elevated lipase Technique: Gaitan-scale and duplex images of the upper abdomen were obtained Comparison: none Findings: Exam is somewhat limited due to body habitus and bowel gas. Gallbladder is unremarkable, without stones, wall thickening, nor pericholecystic fluid. Sonographic Alatorre's sign is negative. Common bile duct measures 6 mm in diameter. No intrahepatic biliary ductal dilatation. Liver demonstrates normal echogenicity, no focal abnormality. It is somewhat enlarged. Portal vein and hepatic veins are patent. Pancreas is unremarkable. Spleen is poorly seen, grossly unremarkable. Left kidney measures 11.9 cm in length. Right kidney measures 11.2 cm length. Both kidneys demonstrate normal echogenicity. There is no hydronephrosis. There is a small right renal cyst demonstrated. . Abdominal aorta is partially obscured by bowel gas, visualized portions are non-aneurysmal . Impression: Somewhat limited exam, as described Negative for gallstones or dilated bile ducts Borderline hepatomegaly Incidental finding of small right renal cyst. Note inability to visualize portions of the abdominal aorta and suboptimal visualization of the spleen
[2019-09-15] MEDS: metFORMIN 500mg tab ORAL SCH ×3 (11:30→17:31)
[2019-09-15 12:00] VITALS: BP 126/74
[2019-09-15] MEDS: Vancomycin 1 GM in NS 275 ML IVPB SCH ×2 (13:06→22:41)
--- NOTE | 2019-09-15 13:27 | Diagnostic Imaging Report ---
Indication: Cough Technique: One view of the chest Comparison: 09/13/2019 Findings: Lungs and pleural spaces are clear. Previously reported left basilar opacity is not evident currently The heart size is normal. The aorta is tortuous and calcified and ectatic Impression: No acute process
--- NOTE | 2019-09-15 13:48 | Surgery Progress Note ---
Surgery Progress Note Subjective Additional Comments Patient seen and examined bedside. More responsive and cooperative today. Patient states that no one's been taking care of his wounds and the other people are fully responsible for and that he can do anything on his own and other people need take care of it and if they do not continue to get worse. Patient states that he has no interest in being involved in it and that he anticipates and expects other people to take care of it as it is their responsibility in their duties. Denies any nausea vomiting fever chills. I had a long discussion with the patient regards to the history of this wound. Patient states that it for months now and I believe this may actually be even a little longer as he will lose to it. I discussed with patient eventual plans in the past and he states that he has been recommended to have entered pension including a BKA possible AKA on the right lower extremity. He states that at that time he had no interest and still currently has no interest and will always refused to have amputation. Patient states he has no interest in ever having an amputation and that if people would continue to do their job and make it better he would get better on its own Objective Last 24 Hour Vital Signs Date Time Temp Pulse Resp B/P (MAP) Pulse Ox O2 Delivery O2 Flow Rate FiO2 09/15/19 09:27 150/89 09/15/19 09:26 106 150/89 09/15/19 09:00 Room Air 09/15/19 08:00 98.4 106 18 150/89 (109) 96 09/15/19 04:00 98.1 99 20 149/86 (107) 98 09/15/19 00:00 97.9 84 16 117/75 (89) 95 09/14/19 21:00 Room Air 09/14/19 20:25 92 95/58 09/14/19 20:00 97.1 92 20 95/58 (70) 92 09/14/19 16:00 100.6 69 23 115/73 (87) 96 09/14/19 16:00 72 I&O Intake and Output 09/14/19 09/15/19 19:00 07:00 Intake Total 600 ml 55.0 ml Output Total 700 ml 900 ml Balance -100 ml -845.0 ml Intake Oral 600 ml IV Total 55.0 ml Output Urine Total 700 ml 900 ml # Bowel Movements 1 Dressing: saturated Wound: other Drains: other Cardiovascular: RSR Respiratory: decreased breath sounds Abdomen: soft, present bowel sounds, non-distended Extremities: edema, tenderness, other Laboratory Tests Test 09/15/19 01:00 09/15/19 04:00 Vancomycin Level Trough 19.9 ug/mL (5.0-12.0) H White Blood Count 5.9 K/UL (4.8-10.8) Red Blood Count 3.61 M/UL (4.70-6.10) L Hemoglobin 10.5 G/DL (14.2-18.0) L Hematocrit 31.5 % (42.0-52.0) L Mean Corpuscular Volume 87 FL (80-99) Mean Corpuscular Hemoglobin 29.0 PG (27.0-31.0) Mean Corpuscular Hemoglobin Concent 33.3 G/DL (32.0-36.0) Red Cell Distribution Width 14.1 % (11.6-14.8) Platelet Count 212 K/UL (150-450) Mean Platelet Volume 5.0 FL (6.5-10.1) L Neutrophils (%) (Auto) 49.3 % (45.0-75.0) Lymphocytes (%) (Auto) 37.4 % (20.0-45.0) Monocytes (%) (Auto) 11.4 % (1.0-10.0) H Eosinophils (%) (Auto) 1.4 % (0.0-3.0) Basophils (%) (Auto) 0.6 % (0.0-2.0) Erythrocyte Sedimentation Rate 80 MM/HR (0-20) H Prothrombin Time 11.2 SEC (9.30-11.50) Prothromb Time International Ratio 1.1 (0.9-1.1) Activated Partial Thromboplast Time 31 SEC (23-33) Sodium Level 139 MMOL/L (136-145) Potassium Level 4.0 MMOL/L (3.5-5.1) Chloride Level 109 MMOL/L (98-107) H Carbon Dioxide Level 24 MMOL/L (21-32) Anion Gap 6 mmol/L (5-15) Blood Urea Nitrogen 9 mg/dL (7-18) Creatinine 1.0 MG/DL (0.55-1.30) Estimat Glomerular Filtration Rate > 60 mL/min (>60) Glucose Level 86 MG/DL (74-106) Calcium Level 8.1 MG/DL (8.5-10.1) L Total Bilirubin 0.9 MG/DL (0.2-1.0) Aspartate Amino Transf (AST/SGOT) 34 U/L (15-37) Alanine Aminotransferase (ALT/SGPT) 35 U/L (12-78) Alkaline Phosphatase 68 U/L (46-116) C-Reactive Protein, Quantitative 6.6 mg/dL (0.00-0.90) H Total Protein 6.9 G/DL (6.4-8.2) Albumin 2.1 G/DL (3.4-5.0) L Globulin 4.8 g/dL Albumin/Globulin Ratio 0.4 (1.0-2.7) L Amylase Level 74 U/L (25-115) Lipase 299 U/L (73-393) Plan Problems: (1) Sepsis Assessment & Plan: febrile, tachycardic, htn elevated lip abnormal lft's chronic wounds will provide local wound care needs improved hygiene okay for diet Abdominal US ordered will follow with recs. thank you (2) Cellulitis in diabetic foot Assessment & Plan: Patient states that no one's been taking care of his wounds and the other people are fully responsible for and that he can do anything on his own and other people need take care of it and if they do not continue to get worse. Patient states that he has no interest in being involved in it and that he anticipates and expects other people to take care of it as it is their responsibility in their duties. Denies any nausea vomiting fever chills. I had a long discussion with the patient regards to the history of this wound. Patient states that it for months now and I believe this may actually be even a little longer as he will lose to it. I discussed with patient eventual plans in the past and he states that he has been recommended to have entered pension including a BKA possible AKA on the right lower extremity. He states that at that time he had no interest and still currently has no interest and will always refused to have amputation. Patient states he has no interest in ever having an amputation and that if people would continue to do their job and make it better he would get better on its own Pt presented on admission with large ulceration LLE and ulcers L knee. Clusters of ulcers L knee. Base of each wound is moist and viable. Small amt sanguineous exudate noted.Periwound skin tone is darker without induration or change in skin temp. At distal lower ext ,pt noted to have large ulcer medial/posterior/lateral extending to R heel and dorsal R foot. Base of wound is shallow with scattered fibrinous slough. Areas of soft necrosis noted to R heel. Borders that are irregular and macerated. Moderate amt brownish exudate. Wound is malodorous. Tx.Plan: Cleanse wound with Dakin's willie 0.25%. Apply Xeroform to wounds . Cover with ABD pads and wrap with Kerlix from Base of toes Daily and prn. Swab wounds L knee with Betadine. Cover with Optifoam drsg.Change Daily and prn. (3) Pancreatitis Assessment & Plan: see above Findings: Exam is somewhat limited due to body habitus and bowel gas. Gallbladder is unremarkable, without stones, wall thickening, nor pericholecystic fluid. Sonographic Alatorre's sign is negative. Common bile duct measures 6 mm in diameter. No intrahepatic biliary ductal dilatation. Liver demonstrates normal echogenicity, no focal abnormality. It is somewhat enlarged. Portal vein and hepatic veins are patent. Pancreas is unremarkable. Spleen is poorly seen, grossly unremarkable. Left kidney measures 11.9 cm in length. Right kidney measures 11.2 cm length. Both kidneys demonstrate normal echogenicity. There is no hydronephrosis. There is a small right renal cyst demonstrated. . Abdominal aorta is partially obscured by bowel gas, visualized portions are non-aneurysmal . Impression: Somewhat limited exam, as described Negative for gallstones or dilated bile ducts Borderline hepatomegaly Incidental finding of small right renal cyst. Note inability to visualize portions of the abdominal aorta and suboptimal visualization of the spleen trend labs thank you trending down improving RaulzulaypalomoKandace duqueya Sep 15, 2019 13:48
[2019-09-15] MEDS: traMADol 50mg tab ORAL PRN (13:54)
--- NOTE | 2019-09-15 14:13 | Diagnostic Imaging Report ---
Indication: Abdominal pain Technique: Supine view of the abdomen Comparison: none Findings: Unremarkable bowel gas pattern. There is a right groin central venous catheter. No masses or unusual calcifications. The visualized lung bases demonstrate interstitial disease Impression: Findings as noted. No definite acute process
[2019-09-15 16:00] VITALS: BP 145/77
[2019-09-15] MEDS ORDERED: Dakin's 0.125% Soln (Quarter Strength) 16oz TOPIC SCH (16:00)
[2019-09-15] MEDS: Dakin's 0.25% (Half Strength) 16oz TOPIC SCH (19:03)
[2019-09-15 20:00] VITALS: BP 140/83
--- NOTE | 2019-09-15 20:03 | Infectious Diseases Prog Note ---
Assessment/Plan Assessment/Plan Full consult dictated: A) 1) sepsis, gram + bacteremia, right foot cellulitis/wound infection with pus , ? osteomyelitis, ? necrotizing fasciitis/gas gangrene 2) pmh noted 3) allergies - nkda P) 1) meropenem, clindamycin, vancomycin 2) d/w surgery - will likely need amputation but patient does not want one 3) check MRI, labs and cultures 4) thank you Subjective Allergies: Coded Allergies: No Known Allergies (Unverified , 04/20/19) Objective Vital Signs Last 24 Hour Vital Signs Date Time Temp Pulse Resp B/P (MAP) Pulse Ox O2 Delivery O2 Flow Rate FiO2 09/15/19 16:00 98.4 80 17 145/77 (99) 96 09/15/19 12:00 98.5 76 16 126/74 (91) 97 09/15/19 09:27 150/89 09/15/19 09:26 106 150/89 09/15/19 09:00 Room Air 09/15/19 08:00 98.4 106 18 150/89 (109) 96 09/15/19 04:00 98.1 99 20 149/86 (107) 98 09/15/19 00:00 97.9 84 16 117/75 (89) 95 09/14/19 21:00 Room Air 09/14/19 20:25 92 95/58 09/14/19 20:00 97.1 92 20 95/58 (70) 92 Height (Feet): 6 Height (Inches): 2.00 Weight (Pounds): 302 Microbiology Date/Time Source Procedure Growth Status 09/13/19 12:30 Blood Blood Culture - Preliminary Resulted 09/13/19 12:30 Blood Blood Culture - Preliminary Resulted Laboratory Tests Test 09/15/19 01:00 09/15/19 04:00 Vancomycin Level Trough 19.9 ug/mL (5.0-12.0) H White Blood Count 5.9 K/UL (4.8-10.8) Red Blood Count 3.61 M/UL (4.70-6.10) L Hemoglobin 10.5 G/DL (14.2-18.0) L Hematocrit 31.5 % (42.0-52.0) L Mean Corpuscular Volume 87 FL (80-99) Mean Corpuscular Hemoglobin 29.0 PG (27.0-31.0) Mean Corpuscular Hemoglobin Concent 33.3 G/DL (32.0-36.0) Red Cell Distribution Width 14.1 % (11.6-14.8) Platelet Count 212 K/UL (150-450) Mean Platelet Volume 5.0 FL (6.5-10.1) L Neutrophils (%) (Auto) 49.3 % (45.0-75.0) Lymphocytes (%) (Auto) 37.4 % (20.0-45.0) Monocytes (%) (Auto) 11.4 % (1.0-10.0) H Eosinophils (%) (Auto) 1.4 % (0.0-3.0) Basophils (%) (Auto) 0.6 % (0.0-2.0) Erythrocyte Sedimentation Rate 80 MM/HR (0-20) H Prothrombin Time 11.2 SEC (9.30-11.50) Prothromb Time International Ratio 1.1 (0.9-1.1) Activated Partial Thromboplast Time 31 SEC (23-33) Sodium Level 139 MMOL/L (136-145) Potassium Level 4.0 MMOL/L (3.5-5.1) Chloride Level 109 MMOL/L (98-107) H Carbon Dioxide Level 24 MMOL/L (21-32) Anion Gap 6 mmol/L (5-15) Blood Urea Nitrogen 9 mg/dL (7-18) Creatinine 1.0 MG/DL (0.55-1.30) Estimat Glomerular Filtration Rate > 60 mL/min (>60) Glucose Level 86 MG/DL (74-106) Calcium Level 8.1 MG/DL (8.5-10.1) L Total Bilirubin 0.9 MG/DL (0.2-1.0) Aspartate Amino Transf (AST/SGOT) 34 U/L (15-37) Alanine Aminotransferase (ALT/SGPT) 35 U/L (12-78) Alkaline Phosphatase 68 U/L (46-116) C-Reactive Protein, Quantitative 6.6 mg/dL (0.00-0.90) H Total Protein 6.9 G/DL (6.4-8.2) Albumin 2.1 G/DL (3.4-5.0) L Globulin 4.8 g/dL Albumin/Globulin Ratio 0.4 (1.0-2.7) L Amylase Level 74 U/L (25-115) Lipase 299 U/L (73-393) Current Medications Medications (Trade) Dose Ordered Sig/Lamont Route PRN Reason Start Time Stop Time Status Last Admin Dose Admin Acetaminophen (Tylenol) 650 mg Q6H PRN ORAL Mild Pain/Temp > 100.5 09/14/19 20:00 10/14/19 07:59 Bupropion HCl (Wellbutrin SR) 100 mg DAILY ORAL 09/15/19 09:00 10/14/19 08:59 09/15/19 09:26 Chlorhexidine Gluconate (Crystal-Hex 2%) 1 applic DAILY@1999 TOPIC 09/14/19 20:00 10/13/19 20:59 09/14/19 21:08 Dextrose (Dextrose 50%) 25 ml Q30M PRN IV Hypoglycemia 09/14/19 19:30 10/13/19 18:59 Dextrose (Dextrose 50%) 50 ml Q30M PRN IV Hypoglycemia 09/14/19 19:30 10/13/19 18:59 Duloxetine HCl (Cymbalta) 30 mg DAILY ORAL 09/15/19 09:00 10/15/19 08:59 09/15/19 09:25 Heparin Sodium (Porcine) (Heparin 5000 units/ml) 5,000 units EVERY 8 HOURS SUBQ 09/14/19 22:00 10/13/19 21:59 09/15/19 13:14 Insulin Aspart (NovoLOG) BEFORE MEALS AND HS SUBQ 09/14/19 21:00 10/13/19 20:59 Lisinopril (PriniviL) 40 mg DAILY ORAL 09/15/19 09:00 10/14/19 08:59 09/15/19 09:27 Lorazepam (Ativan) 2 mg Q6H PRN ORAL For Anxiety 09/14/19 23:45 09/21/19 11:44 Metformin HCl (Glucophage) 500 mg BIDLS ORAL 09/15/19 11:30 10/14/19 11:29 09/15/19 17:31 Metoprolol Tartrate (Lopressor) 100 mg EVERY 12 HOURS ORAL 09/14/19 21:00 10/13/19 22:44 09/15/19 09:26 Morphine Sulfate (Morphine Sulfate) 2 mg Q6H PRN IVP For breakthru Pain 09/14/19 22:45 09/20/19 22:44 Ondansetron HCl (Zofran) 4 mg Q6H PRN IVP Nausea & Vomiting 09/15/19 01:00 10/13/19 18:59 Oxybutynin Chloride (Ditropan) 5 mg DAILY ORAL 09/15/19 09:00 10/14/19 08:59 09/15/19 09:26 Piperacillin Sod/ Tazobactam Sod 3.375 gm/Sodium Chloride 110 ml @ 27.5 mls/hr EVERY 8 HOURS IVPB 09/14/19 22:00 09/18/19 19:59 09/15/19 13:08 Quetiapine Fumarate (SEROqueL) 50 mg TID ORAL 09/15/19 09:00 10/14/19 12:59 09/15/19 17:31 Sodium Hypochlorite (Dakin's Half Strength) 1 applic DAILY TOPIC 09/15/19 18:00 10/15/19 17:59 09/15/19 19:03 Tramadol HCl (Ultram) 50 mg Q4H PRN ORAL For Pain 09/14/19 20:45 09/20/19 20:44 09/15/19 13:54 Vancomycin HCl (Vanco rx to dose) 1 ea DAILY PRN MISC Per rx protocol 09/15/19 09:00 10/13/19 18:59 Vancomycin HCl 1 gm/Sodium Chloride 275 ml @ 183.708 mls/hr Q8HR IVPB 09/15/19 14:00 09/20/19 13:59 09/15/19 13:06 Reg Sue MD Sep 15, 2019 20:03
[2019-09-15] MEDS: Dyna-Hex 2% Top Sol 2oz TOPIC SCH (21:02)
--- NOTE | 2019-09-15 21:15 | Progress Note ---
DATE: 09/15/2019 SUBJECTIVE: This is elderly male, currently in the bed, sleeping. Physically, he is doing better. PHYSICAL EXAMINATION: VITAL SIGNS: Blood pressure 126/74 and pulse 76. No fever. CHEST: Bilateral crackles. CARDIOVASCULAR: Regular rhythm. ABDOMEN: Soft. EXTREMITIES: foot ulcer. GENITOURINARY: Deferred. LABORATORY DATA: White count is 5.9, hemoglobin is 11, hematocrit 32, and platelets are 212,000. Chemistry panel - sodium 139, potassium 4, BUN 9, and creatinine 1. Albumin is 2.1. ASSESSMENT AND PLAN: 1. Cellulitis of the foot. 2. Hypertension. 3. Diabetes. 4. Substance abuse. Continue IV antibiotics. Podiatry is on consult. Continue wound care. Continue metformin and Psych consult. Shubham Perez M.D. DR: VINI JOB#: [id number] CC:
--- NOTE | 2019-09-15 21:30 | Consultation ---
DATE OF CONSULTATION: 09/15/2019 INFECTIOUS DISEASES CONSULTATION CONSULTING PHYSICIAN: Reg Sue M.D. ATTENDING PHYSICIAN: Shubham Perez M.D. REFERRING PHYSICIAN: Shubham Perez M.D. REASON FOR CONSULTATION: Sepsis, gram-positive bacteremia, fevers, infected right foot. CHIEF COMPLAINT: The patient's chief complaint coming into the hospital is infected right foot, fevers, sepsis. HISTORY OF PRESENT ILLNESS: This is a 54-year-old male who has history of chronic wounds and also infected right foot. I discussed with Dr. Joaquin from Surgery and the patient. The patient has had this for quite some time and has been recommended to have intervention including amputation. He does not want this at this time. The patient has gram-positive rods in the blood. He has fever and sepsis. Infectious Diseases consultation requested. The patient has pus coming out of the wounds of the right foot and has cellulitis. Because of the gram-positive rods, there was concern that the patient could have gas gangrene, Clostridium infection, necrotizing fasciitis. In addition, infected right foot wound, rule out osteo and right foot cellulitis. The patient was placed on meropenem, clindamycin and vancomycin. MRI has been ordered. REVIEW OF SYSTEMS: Main issue is right foot pain, multiple wounds, fevers. CARDIAC: No chest pain. GASTROINTESTINAL: No nausea, vomiting, or diarrhea. GENITOURINARY: No history of frequency. PULMONARY: No shortness of breath. HEAD AND NECK: No headache, neck stiffness, thrush, or dysphagia. PAST MEDICAL HISTORY: The patient's past medical history includes the following. The patient has a past medical history of multiple wounds, infected right foot. Other past medical history includes history of diabetes, hypertension, substance abuse, multiple wounds and right foot infection. Atherosclerotic heart disease, anemia, CHF, thrombocytopenia, questionable psychiatric disease. ALLERGIES: No known drug allergies. SOCIAL HISTORY: Positive for substance abuse. FAMILY HISTORY: Noncontributory. MEDICATIONS: Upon reviewing the MAR, he is on the following medications. I put him on vancomycin, meropenem, clindamycin. He is on metformin, bupropion, Wellbutrin. He is on Cymbalta, lisinopril, quetiapine. Antibiotics, vancomycin, meropenem and clindamycin. He is on Zofran, lorazepam, morphine, insulin, tramadol, acetaminophen, chlorhexidine. Outside medications were noted and reconciliated. He is on Wellbutrin. PHYSICAL EXAMINATION: VITAL SIGNS: Temperature 98.4, pulse rate 80, respiratory rate 17, blood pressure 145/77, O2 saturation 96%. Pulse rate is as high as 144, and temperature has been as high as 101. GENERAL: Alert and responsive, weak. HEAD AND NECK: Oral exam, no thrush. Eye exam, no icterus. Normocephalic. Neck is supple. No JVD. HEART: Regular. No gallop or murmur. ABDOMEN: Soft. Positive bowel sounds. Nontender. LUNGS: Clear bilaterally. No rhonchi or rales. SKIN: No rashes. MUSCULOSKELETAL: No effusions. Legs, he has multiple wounds. Right leg without cellulitis. No septic arthritis. Lower extremities, right foot again has swelling, pain, pus comes out of the wounds. PERIPHERAL VASCULAR: His right foot has significant swelling and pus coming out of the wounds. Other wounds were noted also and reviewed. GENITOURINARY: No Gambino. LINE SITES: Without phlebitis. NEUROLOGIC: Intact. Nonfocal. Alert, responsive LABORATORY AND DIAGNOSTIC DATA: Blood cultures with gram-positive rods in multiple bottles, final identification is pending. Creatinine 1.0. White count 5.9, hemoglobin 10.5. I have ordered MRI of the right foot. X-ray of the right foot shows soft tissue swelling. Abdominal ultrasound showed negative gallstones and bile duct dilatation. Of note, his lipase was also 1088. ASSESSMENT AND PLAN: 1. The patient has gram-positive bacteremia with gram-positive rods, likely source is the right foot. The patient looks like he has right foot infected wound cellulitis, possible necrotizing fasciitis and gas gangrene, especially with gram-positive rods growing in blood, rule out osteo. At this time, he also has pancreatitis. The patient is septic with fevers and SIRS criteria. At this time, I will continue meropenem, vancomycin and clindamycin to cover the sepsis, infected right foot. Check MRI of the right foot. The patient likely will need a right leg amputation. However, discussed with Dr. Joaquin I discussed with the patient, he is refusing at this time. Continue vancomycin and meropenem, clindamycin for sepsis, infected right foot with fevers and positive bacteremia. Check MRI cultures and laboratories. 2. The patient has history of substance abuse. 3. Diabetes. 4. Hypertension. 5. Questionable psychiatric disease, he is on Wellbutrin. 6. History of atherosclerotic heart disease. 7. History of CHF. 8. Anemia. 9. History of thrombocytopenia. 10. Pancreatitis. 11. Surgery followup . 12. No known drug allergies. 13. Family history is noncontributory. 14. MAR was noted. 15. Case was discussed with RN. 16. Continue treatment per primary consultants. Reg Sue M.D. DR: Marisa JOB#: [id number] CC:
[2019-09-15] MEDS: Clindamycin 900mg 50 ML IV SCH (22:41)
[2019-09-16] VITALS (7 sets, daily range): BP systolic 95–158; BP diastolic 63–90
[2019-09-16] MEDS: Vancomycin 1 GM in NS 275 ML IVPB SCH ×3 (05:27→21:28)
[2019-09-16] MEDS: Clindamycin 900mg 50 ML IV SCH ×3 (05:27→21:28)
[2019-09-16] MEDS: NovoLOG Insulin Flexpen SUBQ SCH ×4 (05:43→20:45)
[2019-09-16] MEDS: Heparin 5000 units/ml inj SUBQ SCH ×3 (05:44→21:28)
[2019-09-16 06:08] LABS: BASOPHILS % (AUTO) 0.9 % (0.0-2.0); EOSINOPHILS % (AUTO) 1.4 % (0.0-3.0); HEMATOCRIT 32.7 % (42.0-52.0); HEMOGLOBIN 10.8 G/DL (14.2-18.0); LYMPHOCYTES % (AUTO) 39.1 % (20.0-45.0); MEAN CORPUSCULAR VOLUME 88 FL (80-99); NEUTROPHILS % (AUTO) 52.6 % (45.0-75.0); PLATELET COUNT 249 K/UL (150-450); RED BLOOD COUNT 3.71 M/UL (4.70-6.10); RED CELL DISTRIBUTION WIDTH 14.3 % (11.6-14.8)
[2019-09-16 06:48] LABS: ALANINE AMINOTRANSFERASE 40 U/L (12-78); ALBUMIN 2.1 G/DL (3.4-5.0); ALBUMIN/GLOBULIN RATIO 0.4 (1.0-2.7); ALKALINE PHOSPHATASE 62 U/L (46-116); ANION GAP 8 mmol/L (5-15); ASPARTATE AMINO TRANSFERASE 45 U/L (15-37); BILIRUBIN,TOTAL 0.5 MG/DL (0.2-1.0); BLOOD UREA NITROGEN 11 mg/dL (7-18); CALCIUM 8.3 MG/DL (8.5-10.1); CARBON DIOXIDE 25 MMOL/L (21-32); CHLORIDE 108 MMOL/L (98-107); POTASSIUM 4.2 MMOL/L (3.5-5.1); SODIUM 141 MMOL/L (136-145)
[2019-09-16] MEDS: Metoprolol Tartrate 100mg tab ORAL SCH ×2 (08:59→21:36)
[2019-09-16] MEDS: DULoxetine 30mg cap ORAL SCH (08:59)
[2019-09-16] MEDS: Oxybutynin 5mg tab ORAL SCH (08:59)
[2019-09-16] MEDS: Lisinopril 20mg tab ORAL SCH (08:59)
[2019-09-16] MEDS: BuPROPion SR 100mg tab ORAL SCH (08:59)
[2019-09-16] MEDS: Dakin's 0.25% (Half Strength) 16oz TOPIC SCH (09:00)
[2019-09-16] MEDS ORDERED: Dakin's 0.125% Soln (Quarter Strength) 16oz TOPIC SCH (09:00)
[2019-09-16] MEDS: Morphine Sulfate 2mg/ml Inj(IV/IM USE ONLY) IVP PRN (09:00)
[2019-09-16] MEDS: metFORMIN 500mg tab ORAL SCH ×2 (12:34→17:15)
[2019-09-16] MEDS: traMADol 50mg tab ORAL PRN (12:55)
--- NOTE | 2019-09-16 14:31 | Diagnostic Imaging Report ---
Indication: Large right foot wound Technique: Sagittal, axial, coronal T1 FSE and FSE STIR, pre and postcontrast axial and coronal T1 fat-saturated images obtained of the forefoot Comparison: Radiograph dated 09/13/2019 Findings: Exam is somewhat limited due to patient inability to stay still and patient contracture necessitating use of torso coil rather than extremity coil.. In particular, the distal phalanges are not well imaged. No marrow signal abnormality is evident. There is slight circumferential edema of the soft tissues of the first and second toes, as well as some dorsal soft tissue edema. There is also edema of the deep musculotendinous compartment involving both the dorsal and plantar surfaces. No focal drainable collections are demonstrated. Some fluid is seen coursing along the dorsal shaft of the fourth and fifth proximal and middle phalanges. The bones of the second, third, and fourth toes and to a lesser extent the distal first distal phalanx are not well saturated on the pre and postcontrast images, so enhancement of these bones cannot be ruled out. No definite proximal enhancement demonstrated. No focal nonenhancing areas to suggest abscess are demonstrated is diffuse soft tissue enhancement noted. Impression: Markedly limited exam, as described Diffusely edematous and enhancing soft tissues of the forefoot, as described. Given stated clinical history, most likely secondary to cellulitis. No definite evidence of abscess No definite findings to suggest acute osteomyelitis.
--- NOTE | 2019-09-16 14:38 | Diagnostic Imaging Report ---
Indication: Right foot wound, suspect osteomyelitis Technique: Sagittal, axial, coronal T1 FSE and FSE STIR, postcontrast axial and coronal T1 fat-saturated images obtained through the ankle Comparison: none Findings: Exam is severely limited due to use of torso coil rather than extremity coil (necessitated by patient contractures), as well as patient motion despite sedation. Abnormal increased STIR and decreased T1 marrow signal is seen within the talus. Similar findings are seen within the anterior calcaneus. There is also increased STIR and decreased T1 signal within the distal fibula. The same areas also enhance on the postcontrast images. No midfoot signal abnormality is demonstrated. The soft tissues demonstrate diffuse high STIR signal, consistent with edema. No discrete drainable fluid collection is demonstrated. The large tendons appear intact. Impression: Abnormal marrow signal in the distal fibula, talus, and calcaneus, with associated contrast enhancement. Findings are highly suspicious for acute osteomyelitis Diffuse soft tissue edema and enhancement, likely secondary to cellulitis given stated clinical history. No definite drainable soft tissue abscess demonstrated. Dr. Perez notified by phone of the findings at the time of interpretation
--- NOTE | 2019-09-16 17:03 | Surgery Progress Note ---
Surgery Progress Note Subjective Additional Comments doing okay MRI noted and reviewed with patient he is still adamant that no surgery Objective Last 24 Hour Vital Signs Date Time Temp Pulse Resp B/P (MAP) Pulse Ox O2 Delivery O2 Flow Rate FiO2 09/16/19 16:00 98.0 74 18 127/78 (94) 96 09/16/19 12:00 98.0 71 17 95/63 (74) 98 09/16/19 09:00 Room Air 09/16/19 08:59 98 158/87 09/16/19 08:59 158/87 09/16/19 08:00 98.0 98 19 158/87 (110) 98 09/16/19 04:00 98.3 75 16 148/74 (98) 98 09/16/19 01:40 100.7 09/16/19 00:00 100.7 90 16 140/74 (96) 98 09/15/19 21:43 Room Air 09/15/19 21:02 87 140/74 09/15/19 20:00 99.3 99 18 140/83 (102) 98 I&O Intake and Output 09/15/19 09/16/19 19:00 07:00 Intake Total 385.0 ml 800 ml Output Total 2250 ml Balance 385.0 ml -1450 ml Intake Oral 800 ml IV Total 385.0 ml Output Urine Total 2250 ml Dressing: dry Wound: other Drains: other Cardiovascular: RSR Respiratory: clear Abdomen: soft, flat, non-tender, present bowel sounds Extremities: edema, no tenderness, other Laboratory Tests Test 09/16/19 05:00 09/16/19 12:45 White Blood Count 7.0 K/UL (4.8-10.8) Red Blood Count 3.71 M/UL (4.70-6.10) L Hemoglobin 10.8 G/DL (14.2-18.0) L Hematocrit 32.7 % (42.0-52.0) L Mean Corpuscular Volume 88 FL (80-99) Mean Corpuscular Hemoglobin 29.1 PG (27.0-31.0) Mean Corpuscular Hemoglobin Concent 32.9 G/DL (32.0-36.0) Red Cell Distribution Width 14.3 % (11.6-14.8) Platelet Count 249 K/UL (150-450) Mean Platelet Volume 5.0 FL (6.5-10.1) L Neutrophils (%) (Auto) 52.6 % (45.0-75.0) Lymphocytes (%) (Auto) 39.1 % (20.0-45.0) Monocytes (%) (Auto) 6.0 % (1.0-10.0) Eosinophils (%) (Auto) 1.4 % (0.0-3.0) Basophils (%) (Auto) 0.9 % (0.0-2.0) Sodium Level 141 MMOL/L (136-145) Potassium Level 4.2 MMOL/L (3.5-5.1) Chloride Level 108 MMOL/L (98-107) H Carbon Dioxide Level 25 MMOL/L (21-32) Anion Gap 8 mmol/L (5-15) Blood Urea Nitrogen 11 mg/dL (7-18) Creatinine 1.0 MG/DL (0.55-1.30) Estimat Glomerular Filtration Rate > 60 mL/min (>60) Glucose Level 87 MG/DL (74-106) Calcium Level 8.3 MG/DL (8.5-10.1) L Total Bilirubin 0.5 MG/DL (0.2-1.0) Aspartate Amino Transf (AST/SGOT) 45 U/L (15-37) H Alanine Aminotransferase (ALT/SGPT) 40 U/L (12-78) Alkaline Phosphatase 62 U/L (46-116) Total Protein 7.2 G/DL (6.4-8.2) Albumin 2.1 G/DL (3.4-5.0) L Globulin 5.1 g/dL Albumin/Globulin Ratio 0.4 (1.0-2.7) L Vancomycin Level Trough 15.9 ug/mL (5.0-12.0) H Plan Problems: (1) Sepsis Assessment & Plan: febrile, tachycardic, htn elevated lip abnormal lft's chronic wounds will provide local wound care needs improved hygiene okay for diet Abdominal US ordered will follow with recs. thank you (2) Cellulitis in diabetic foot Assessment & Plan: Patient states that no one's been taking care of his wounds and the other people are fully responsible for and that he can do anything on his own and other people need take care of it and if they do not continue to get worse. Patient states that he has no interest in being involved in it and that he anticipates and expects other people to take care of it as it is their responsibility in their duties. Denies any nausea vomiting fever chills. I had a long discussion with the patient regards to the history of this wound. Patient states that it for months now and I believe this may actually be even a little longer as he will lose to it. I discussed with patient eventual plans in the past and he states that he has been recommended to have entered pension including a BKA possible AKA on the right lower extremity. He states that at that time he had no interest and still currently has no interest and will always refused to have amputation. Patient states he has no interest in ever having an amputation and that if people would continue to do their job and make it better he would get better on its own Pt presented on admission with large ulceration LLE and ulcers L knee. Clusters of ulcers L knee. Base of each wound is moist and viable. Small amt sanguineous exudate noted.Periwound skin tone is darker without induration or change in skin temp. At distal lower ext ,pt noted to have large ulcer medial/posterior/lateral extending to R heel and dorsal R foot. Base of wound is shallow with scattered fibrinous slough. Areas of soft necrosis noted to R heel. Borders that are irregular and macerated. Moderate amt brownish exudate. Wound is malodorous. Tx.Plan: Cleanse wound with Dakin's willie 0.25%. Apply Xeroform to wounds . Cover with ABD pads and wrap with Kerlix from Base of toes Daily and prn. Swab wounds L knee with Betadine. Cover with Optifoam drsg.Change Daily and prn. Impression: Abnormal marrow signal in the distal fibula, talus, and calcaneus, with associated contrast enhancement. Findings are highly suspicious for acute osteomyelitis Diffuse soft tissue edema and enhancement, likely secondary to cellulitis given stated clinical history. No definite drainable soft tissue abscess demonstrated. Podiatry eval Given findings unlikely able to salvage limb as he has acute osteo, extensive cellulitis, pus and tissue loss chronically. would recommend BKA. patient not interested in surgery at this time. explained risks, benefits, and alternatives. patient very clear that he will not consider surgery at this time and only local care plus abx (3) Pancreatitis Assessment & Plan: see above Findings: Exam is somewhat limited due to body habitus and bowel gas. Gallbladder is unremarkable, without stones, wall thickening, nor pericholecystic fluid. Sonographic Alatorre's sign is negative. Common bile duct measures 6 mm in diameter. No intrahepatic biliary ductal dilatation. Liver demonstrates normal echogenicity, no focal abnormality. It is somewhat enlarged. Portal vein and hepatic veins are patent. Pancreas is unremarkable. Spleen is poorly seen, grossly unremarkable. Left kidney measures 11.9 cm in length. Right kidney measures 11.2 cm length. Both kidneys demonstrate normal echogenicity. There is no hydronephrosis. There is a small right renal cyst demonstrated. . Abdominal aorta is partially obscured by bowel gas, visualized portions are non-aneurysmal . Impression: Somewhat limited exam, as described Negative for gallstones or dilated bile ducts Borderline hepatomegaly Incidental finding of small right renal cyst. Note inability to visualize portions of the abdominal aorta and suboptimal visualization of the spleen trend labs thank you trending down improving Farhat Joaquin Sep 16, 2019 17:03
[2019-09-16] MEDS: Dyna-Hex 2% Top Sol 2oz TOPIC SCH (21:27)
--- NOTE | 2019-09-16 23:30 | Progress Note ---
DATE: 09/16/2019 SUBJECTIVE: This is elderly male, currently more awake today and feeling better. OBJECTIVE: VITAL SIGNS: Blood pressure 127/78, pulse 74. No fever. CHEST: Bilaterally clear. CARDIOVASCULAR: Regular rhythm. ABDOMEN: Soft. EXTREMITIES: He has right foot ulcer. ASSESSMENT: 1. Right foot ulcer. 2. Renal insufficiency. 3. Substance abuse. PLAN: 1. Consider psych consult. 2. Continue current treatment. 3. Continue antibiotics. 4. ID is on consult. Shubham Perez M.D. DR: SERA JOB#: [id number] CC:
[2019-09-17 04:00] VITALS: BP 140/91
--- NOTE | 2019-09-17 05:00 | Progress Note ---
DATE: 09/13/2019 HISTORY OF PRESENT ILLNESS: The patient is calmer, more cooperative today, less agitated. Still to not fully cooperative, less agitation. Took his medication. Discussed the surgery with the surgeon. MENTAL STATUS EXAMINATION: The patient is alert and oriented x2. Mood is neutral. Less agitated. Affect is flat. Thought process is concrete. Thought content, no suicidal or homicidal ideation. Cognition is impaired. Insight and judgment is impaired. ASSESSMENT: Psychotic disorder, methamphetamine abuse. PLAN: 1. We will continue Seroquel. 2. We will provide the patient with reality orientation and supportive therapy. 3. Discussed Fany Reyes M.D. DR: Mikaela JOB#: [id number] CC: MALU
[2019-09-17] MEDS: Clindamycin 900mg 50 ML IV SCH ×3 (05:14→22:06)
[2019-09-17] MEDS: Vancomycin 1 GM in NS 275 ML IVPB SCH ×3 (05:14→22:07)
[2019-09-17] MEDS: Heparin 5000 units/ml inj SUBQ SCH ×3 (05:29→22:00)
[2019-09-17] MEDS: NovoLOG Insulin Flexpen SUBQ SCH ×4 (05:32→20:59)
[2019-09-17 08:00] VITALS: BP 152/59
[2019-09-17] MEDS: Morphine Sulfate 2mg/ml Inj(IV/IM USE ONLY) IVP PRN ×3 (08:42→21:01)
[2019-09-17] MEDS: Oxybutynin 5mg tab ORAL SCH (08:42)
[2019-09-17] MEDS: BuPROPion SR 100mg tab ORAL SCH (08:42)
[2019-09-17] MEDS: Metoprolol Tartrate 100mg tab ORAL SCH ×2 (08:42→20:59)
[2019-09-17] MEDS: DULoxetine 30mg cap ORAL SCH (08:42)
[2019-09-17] MEDS: Lisinopril 20mg tab ORAL SCH (08:42)
[2019-09-17] MEDS: Dakin's 0.25% (Half Strength) 16oz TOPIC SCH (08:43)
[2019-09-17] MEDS ORDERED: Heparin1,000 units/500ml Premix(Conc:2 units/ml) ONE (10:00)
[2019-09-17] MEDS ORDERED: Lidocaine 1% Plain 30 ml INJ ONE (10:00)
[2019-09-17] MEDS: metFORMIN 500mg tab ORAL SCH ×2 (11:59→17:09)
[2019-09-17 12:00] VITALS: BP 159/99
--- NOTE | 2019-09-17 12:47 | Surgery Progress Note ---
Surgery Progress Note Subjective Additional Comments no acute events seen by podiatry input appreciated Objective Last 24 Hour Vital Signs Date Time Temp Pulse Resp B/P (MAP) Pulse Ox O2 Delivery O2 Flow Rate FiO2 09/17/19 12:00 98.0 85 19 159/99 (119) 99 09/17/19 09:12 97.6 09/17/19 09:00 Room Air 09/17/19 08:42 99 152/59 09/17/19 08:42 152/59 09/17/19 08:00 97.6 99 19 152/59 (90) 96 09/17/19 04:00 97.9 87 18 140/91 (107) 100 09/16/19 23:57 98.1 99 18 150/90 (110) 98 09/16/19 21:36 95 140/88 09/16/19 21:00 Room Air 09/16/19 20:00 98.0 95 18 140/88 (105) 97 09/16/19 16:00 98.0 74 18 127/78 (94) 96 I&O Intake and Output 09/16/19 09/17/19 19:00 07:00 Intake Total 1200 ml 425.000 ml Output Total 1000 ml Balance 1200 ml -575.000 ml IV Total 425.000 ml Other 1200 ml Output Urine Total 1000 ml Dressing: dry Wound: other Drains: other Cardiovascular: RSR Respiratory: decreased breath sounds Abdomen: soft, present bowel sounds Extremities: no cyanosis, other Plan Problems: (1) Sepsis Assessment & Plan: febrile, tachycardic, htn elevated lip abnormal lft's chronic wounds will provide local wound care needs improved hygiene okay for diet Abdominal US Negative for gallstones or dilated bile ducts Borderline hepatomegaly Incidental finding of small right renal cyst. will follow with recs. thank you (2) Cellulitis in diabetic foot Assessment & Plan: Patient states that no one's been taking care of his wounds and the other people are fully responsible for and that he can do anything on his own and other people need take care of it and if they do not continue to get worse. Patient states that he has no interest in being involved in it and that he anticipates and expects other people to take care of it as it is their responsibility in their duties. Denies any nausea vomiting fever chills. I had a long discussion with the patient regards to the history of this wound. Patient states that it for months now and I believe this may actually be even a little longer as he will lose to it. I discussed with patient eventual plans in the past and he states that he has been recommended to have entered pension including a BKA possible AKA on the right lower extremity. He states that at that time he had no interest and still currently has no interest and will always refused to have amputation. Patient states he has no interest in ever having an amputation and that if people would continue to do their job and make it better he would get better on its own Pt presented on admission with large ulceration LLE and ulcers L knee. Clusters of ulcers L knee. Base of each wound is moist and viable. Small amt sanguineous exudate noted.Periwound skin tone is darker without induration or change in skin temp. At distal lower ext ,pt noted to have large ulcer medial/posterior/lateral extending to R heel and dorsal R foot. Base of wound is shallow with scattered fibrinous slough. Areas of soft necrosis noted to R heel. Borders that are irregular and macerated. Moderate amt brownish exudate. Wound is malodorous. Tx.Plan: Cleanse wound with Dakin's willie 0.25%. Apply Xeroform to wounds . Cover with ABD pads and wrap with Kerlix from Base of toes Daily and prn. Swab wounds L knee with Betadine. Cover with Optifoam drsg.Change Daily and prn. Impression: Abnormal marrow signal in the distal fibula, talus, and calcaneus, with associated contrast enhancement. Findings are highly suspicious for acute osteomyelitis Diffuse soft tissue edema and enhancement, likely secondary to cellulitis given stated clinical history. No definite drainable soft tissue abscess demonstrated. Podiatry eval Given findings unlikely able to salvage limb as he has acute osteo, extensive cellulitis, pus and tissue loss chronically. would recommend BKA. patient not interested in surgery at this time. explained risks, benefits, and alternatives. patient very clear that he will not consider surgery at this time and only local care plus abx (3) Pancreatitis Assessment & Plan: see above Findings: Exam is somewhat limited due to body habitus and bowel gas. Gallbladder is unremarkable, without stones, wall thickening, nor pericholecystic fluid. Sonographic Alatorre's sign is negative. Common bile duct measures 6 mm in diameter. No intrahepatic biliary ductal dilatation. Liver demonstrates normal echogenicity, no focal abnormality. It is somewhat enlarged. Portal vein and hepatic veins are patent. Pancreas is unremarkable. Spleen is poorly seen, grossly unremarkable. Left kidney measures 11.9 cm in length. Right kidney measures 11.2 cm length. Both kidneys demonstrate normal echogenicity. There is no hydronephrosis. There is a small right renal cyst demonstrated. . Abdominal aorta is partially obscured by bowel gas, visualized portions are non-aneurysmal . Impression: Somewhat limited exam, as described Negative for gallstones or dilated bile ducts Borderline hepatomegaly Incidental finding of small right renal cyst. Note inability to visualize portions of the abdominal aorta and suboptimal visualization of the spleen trend labs thank you trending down improving Farhat Joaquin Sep 17, 2019 12:47
[2019-09-17] MEDS ORDERED: Lidocaine 1% Plain 30 ml INJ PRN (15:54)
[2019-09-17 16:00] VITALS: BP 162/101
[2019-09-17] MEDS ORDERED: Heparin1,000 units/500ml Premix(Conc:2 units/ml) IV PRN (16:00)
--- NOTE | 2019-09-17 16:45 | Progress Note ---
DATE: 09/17/2019 SUBJECTIVE: This is elderly male. Currently doing fine. OBJECTIVE: VITAL SIGNS: Blood pressure is 152/59, pulse , temperature 97.6. HEENT: NAD. CHEST: Bilaterally clear. CARDIOVASCULAR: Regular rhythm. ABDOMEN: Soft. EXTREMITIES: CCE. LABORATORY DATA: The patient has no labs today. ASSESSMENT: 1. Right leg ulcer. 2. Cellulitis. 3. Depression. PLAN: 1. Continue antibiotic. 2. Continue wound care. Shubham Perez M.D. DR: SERA JOB#: [id number] CC:
--- NOTE | 2019-09-17 17:03 | Infectious Diseases Prog Note ---
Assessment/Plan Assessment/Plan ASSESSMENT AND PLAN: 1. diphtheroids bacteremia/? endocarditis, right ankle osteomyelitis, right foot /ankle cellulitis, sepsis, pancreatitis, elevated lipase, fevers - vancomycin and meropenem - day # 3 - patient refusing amputation - will need 6 weeks iv abx - wound care per surgery and podiatry - monitor labs, check surveillance blood cultures 2. The patient has history of substance abuse. 3. Diabetes. 4. Hypertension. 5. Questionable psychiatric disease, he is on Wellbutrin. 6. History of atherosclerotic heart disease. 7. History of CHF. 8. Anemia. 9. History of thrombocytopenia. 10. Pancreatitis. 11. Surgery followup . 12. No known drug allergies. 13. Family history is noncontributory. 14. MAR was noted. 15. Case was discussed with RN. 16. Continue treatment per primary consultants. Subjective Constitutional: Denies: fever HEENT: Denies: congestion Respiratory: Denies: shortness of breath Cardiovascular: Denies: chest pain Gastrointestinal/Abdominal: Denies: nausea, vomiting, diarrhea Genitourinary: Reports: other - no alexander Neurologic: Denies: headache Psychiatric: Denies: depression Skin: Denies: rash Hematologic: Denies: bleeding Musculoskeletal: Reports: pain - right foot pain better Allergies: Coded Allergies: No Known Allergies (Unverified , 04/20/19) Objective Vital Signs Last 24 Hour Vital Signs Date Time Temp Pulse Resp B/P (MAP) Pulse Ox O2 Delivery O2 Flow Rate FiO2 09/17/19 16:00 98.1 87 19 162/101 (121) 100 09/17/19 15:13 98.0 09/17/19 12:00 98.0 85 19 159/99 (119) 99 09/17/19 09:00 Room Air 09/17/19 08:42 99 152/59 09/17/19 08:42 152/59 09/17/19 08:00 97.6 99 19 152/59 (90) 96 09/17/19 04:00 97.9 87 18 140/91 (107) 100 09/16/19 23:57 98.1 99 18 150/90 (110) 98 09/16/19 21:36 95 140/88 09/16/19 21:00 Room Air 09/16/19 20:00 98.0 95 18 140/88 (105) 97 Height (Feet): 6 Height (Inches): 2.00 Weight (Pounds): 302 General Appearance: no acute distress HEENT: normocephalic, atraumatic, anicteric, mucous membranes moist Respiratory/Chest: lungs clear, normal breath sounds, no respiratory distress, no accessory muscle use Cardiovascular: normal rate, regular rhythm, no gallop/murmur Abdomen: normal bowel sounds, soft, non tender, no organomegaly, non distended Genitourinary: other - no alexander Extremities: other - right foot covered, wounds noted Skin: no rash 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 Given stated clinical history, most likely secondary to cellulitis. No definite evidence of abscess No definite findings to suggest acute osteomyelitis. Impression: Abnormal marrow signal in the distal fibula, talus, and calcaneus, with associated contrast enhancement. Findings are highly suspicious for acute osteomyelitis Diffuse soft tissue edema and enhancement, likely secondary to cellulitis given stated clinical history. No definite drainable soft tissue abscess demonstrated. Microbiology Date/Time Source Procedure Growth Status 09/13/19 12:30 Blood Blood Culture - Final Diphtheroids Complete Labs Test 09/15/19 01:00 09/15/19 04:00 09/16/19 05:00 09/16/19 12:45 Vancomycin Level Trough 19.9 ug/mL (5.0-12.0) 15.9 ug/mL (5.0-12.0) White Blood Count 5.9 K/UL (4.8-10.8) 7.0 K/UL (4.8-10.8) Red Blood Count 3.61 M/UL (4.70-6.10) 3.71 M/UL (4.70-6.10) Hemoglobin 10.5 G/DL (14.2-18.0) 10.8 G/DL (14.2-18.0) Hematocrit 31.5 % (42.0-52.0) 32.7 % (42.0-52.0) Mean Corpuscular Volume 87 FL (80-99) 88 FL (80-99) Mean Corpuscular Hemoglobin 29.0 PG (27.0-31.0) 29.1 PG (27.0-31.0) Mean Corpuscular Hemoglobin Concent 33.3 G/DL (32.0-36.0) 32.9 G/DL (32.0-36.0) Red Cell Distribution Width 14.1 % (11.6-14.8) 14.3 % (11.6-14.8) Platelet Count 212 K/UL (150-450) 249 K/UL (150-450) Mean Platelet Volume 5.0 FL (6.5-10.1) 5.0 FL (6.5-10.1) Neutrophils (%) (Auto) 49.3 % (45.0-75.0) 52.6 % (45.0-75.0) Lymphocytes (%) (Auto) 37.4 % (20.0-45.0) 39.1 % (20.0-45.0) Monocytes (%) (Auto) 11.4 % (1.0-10.0) 6.0 % (1.0-10.0) Eosinophils (%) (Auto) 1.4 % (0.0-3.0) 1.4 % (0.0-3.0) Basophils (%) (Auto) 0.6 % (0.0-2.0) 0.9 % (0.0-2.0) Erythrocyte Sedimentation Rate 80 MM/HR (0-20) Prothrombin Time 11.2 SEC (9.30-11.50) Prothromb Time International Ratio 1.1 (0.9-1.1) Activated Partial Thromboplast Time 31 SEC (23-33) Sodium Level 139 MMOL/L (136-145) 141 MMOL/L (136-145) Potassium Level 4.0 MMOL/L (3.5-5.1) 4.2 MMOL/L (3.5-5.1) Chloride Level 109 MMOL/L (98-107) 108 MMOL/L (98-107) Carbon Dioxide Level 24 MMOL/L (21-32) 25 MMOL/L (21-32) Anion Gap 6 mmol/L (5-15) 8 mmol/L (5-15) Blood Urea Nitrogen 9 mg/dL (7-18) 11 mg/dL (7-18) Creatinine 1.0 MG/DL (0.55-1.30) 1.0 MG/DL (0.55-1.30) Estimat Glomerular Filtration Rate > 60 mL/min (>60) > 60 mL/min (>60) Glucose Level 86 MG/DL (74-106) 87 MG/DL (74-106) Calcium Level 8.1 MG/DL (8.5-10.1) 8.3 MG/DL (8.5-10.1) Total Bilirubin 0.9 MG/DL (0.2-1.0) 0.5 MG/DL (0.2-1.0) Aspartate Amino Transf (AST/SGOT) 34 U/L (15-37) 45 U/L (15-37) Alanine Aminotransferase (ALT/SGPT) 35 U/L (12-78) 40 U/L (12-78) Alkaline Phosphatase 68 U/L (46-116) 62 U/L (46-116) C-Reactive Protein, Quantitative 6.6 mg/dL (0.00-0.90) Total Protein 6.9 G/DL (6.4-8.2) 7.2 G/DL (6.4-8.2) Albumin 2.1 G/DL (3.4-5.0) 2.1 G/DL (3.4-5.0) Globulin 4.8 g/dL 5.1 g/dL Albumin/Globulin Ratio 0.4 (1.0-2.7) 0.4 (1.0-2.7) Amylase Level 74 U/L (25-115) Lipase 299 U/L (73-393) Current Medications Medications (Trade) Dose Ordered Sig/Lamont Route PRN Reason Start Time Stop Time Status Last Admin Dose Admin Acetaminophen (Tylenol) 650 mg Q6H PRN ORAL Mild Pain/Temp > 100.5 09/14/19 20:00 10/14/19 07:59 09/17/19 02:57 Amlodipine Besylate (Norvasc) 10 mg DAILY ORAL 09/17/19 16:00 10/17/19 15:59 Bupropion HCl (Wellbutrin SR) 100 mg DAILY ORAL 09/15/19 09:00 10/14/19 08:59 09/17/19 08:42 Chlorhexidine Gluconate (Crystal-Hex 2%) 1 applic DAILY@2000 TOPIC 09/17/19 20:00 10/17/19 19:59 Clindamycin HCl/ Dextrose 50 ml @ 100 mls/hr Q8HR IV 09/15/19 22:00 09/18/19 21:59 09/17/19 13:22 Dextrose (Dextrose 50%) 25 ml Q30M PRN IV Hypoglycemia 09/14/19 19:30 10/13/19 18:59 Dextrose (Dextrose 50%) 50 ml Q30M PRN IV Hypoglycemia 09/14/19 19:30 10/13/19 18:59 Duloxetine HCl (Cymbalta) 30 mg DAILY ORAL 09/15/19 09:00 10/15/19 08:59 09/17/19 08:42 Heparin Sodium (Porcine) (Heparin 5000 units/ml) 5,000 units EVERY 8 HOURS SUBQ 09/14/19 22:00 10/13/19 21:59 09/17/19 13:29 Heparin Sodium/ Sodium Chloride (Heparin 1000 units/500ml Premix) 1,000 unit ONCE PRN IV PICC 09/17/19 16:00 09/17/19 23:59 Insulin Aspart (NovoLOG) BEFORE MEALS AND HS SUBQ 09/14/19 21:00 10/13/19 20:59 Lidocaine HCl (Xylocaine 1% 30ml) 30 ml ONCE PRN INJ PICC 09/17/19 15:54 09/17/19 23:59 Lisinopril (PriniviL) 40 mg DAILY ORAL 09/15/19 09:00 10/14/19 08:59 09/17/19 08:42 Lorazepam (Ativan) 2 mg Q6H PRN ORAL For Anxiety 09/14/19 23:45 09/21/19 11:44 Meropenem 1 gm/ Sodium Chloride 100 ml @ 200 mls/hr Q8HR IVPB 09/15/19 22:00 09/20/19 21:59 09/17/19 13:22 Metformin HCl (Glucophage) 500 mg BIDLS ORAL 09/16/19 12:34 10/16/19 12:33 09/17/19 11:59 Metoprolol Tartrate (Lopressor) 100 mg EVERY 12 HOURS ORAL 09/14/19 21:00 10/13/19 22:44 09/17/19 08:42 Morphine Sulfate (Morphine Sulfate) 2 mg Q6H PRN IVP For breakthru Pain 09/14/19 22:45 09/20/19 22:44 09/17/19 14:43 Ondansetron HCl (Zofran) 4 mg Q6H PRN IVP Nausea & Vomiting 09/15/19 01:00 10/13/19 18:59 Oxybutynin Chloride (Ditropan) 5 mg DAILY ORAL 09/15/19 09:00 10/14/19 08:59 09/17/19 08:42 Quetiapine Fumarate (SEROqueL) 50 mg TID ORAL 09/15/19 09:00 10/14/19 12:59 09/17/19 13:22 Sodium Hypochlorite (Dakin's Half Strength) 1 applic DAILY TOPIC 09/15/19 18:00 10/15/19 17:59 09/17/19 08:43 Tramadol HCl (Ultram) 50 mg Q4H PRN ORAL For Pain 09/14/19 20:45 09/20/19 20:44 09/16/19 12:55 Vancomycin HCl (Vanco rx to dose) 1 ea DAILY PRN MISC Per rx protocol 09/15/19 09:00 10/13/19 18:59 Vancomycin HCl 1 gm/Sodium Chloride 275 ml @ 183.708 mls/hr Q8HR IVPB 09/15/19 14:00 09/20/19 13:59 09/17/19 13:22 Reg Sue MD Sep 17, 2019 17:03
[2019-09-17 17:45] LABS: BASOPHILS % (AUTO) 0.8 % (0.0-2.0); EOSINOPHILS % (AUTO) 1.5 % (0.0-3.0); HEMATOCRIT 35.3 % (42.0-52.0); HEMOGLOBIN 11.1 G/DL (14.2-18.0); LYMPHOCYTES % (AUTO) 30.5 % (20.0-45.0); MEAN CORPUSCULAR VOLUME 91 FL (80-99); MONOCYTES % (AUTO) 7.3 % (1.0-10.0); PLATELET COUNT 258 K/UL (150-450); RED BLOOD COUNT 3.86 M/UL (4.70-6.10); RED CELL DISTRIBUTION WIDTH 15.1 % (11.6-14.8); WHITE BLOOD COUNT 6.1 K/UL (4.8-10.8)
[2019-09-17 18:30] LABS: ALANINE AMINOTRANSFERASE 40 U/L (12-78); ALBUMIN 2.2 G/DL (3.4-5.0); ALBUMIN/GLOBULIN RATIO 0.5 (1.0-2.7); ALKALINE PHOSPHATASE 66 U/L (46-116); ANION GAP 8 mmol/L (5-15); ASPARTATE AMINO TRANSFERASE 44 U/L (15-37); BILIRUBIN,TOTAL 0.3 MG/DL (0.2-1.0); BLOOD UREA NITROGEN 12 mg/dL (7-18); CALCIUM 8.6 MG/DL (8.5-10.1); CARBON DIOXIDE 26 MMOL/L (21-32); CHLORIDE 104 MMOL/L (98-107); POTASSIUM 4.9 MMOL/L (3.5-5.1); SODIUM 138 MMOL/L (136-145)
[2019-09-17 20:00] VITALS: BP 149/89
[2019-09-17] MEDS: Dyna-Hex 2% Top Sol 2oz TOPIC SCH (20:00)
[2019-09-18] VITALS: BP 132/82
[2019-09-18 04:00] VITALS: BP 126/86
[2019-09-18] MEDS: Clindamycin 900mg 50 ML IV SCH ×2 (05:15→15:42)
[2019-09-18] MEDS: Vancomycin 1 GM in NS 275 ML IVPB SCH ×3 (05:16→21:28)
[2019-09-18] MEDS: NovoLOG Insulin Flexpen SUBQ SCH ×4 (06:15→21:00)
[2019-09-18] MEDS: Morphine Sulfate 2mg/ml Inj(IV/IM USE ONLY) IVP PRN ×2 (06:16→16:47)
[2019-09-18] MEDS: Heparin 5000 units/ml inj SUBQ SCH ×3 (06:17→21:41)
[2019-09-18 08:00] VITALS: BP 153/89
[2019-09-18] MEDS: Dakin's 0.25% (Half Strength) 16oz TOPIC SCH (09:00)
[2019-09-18] MEDS: Oxybutynin 5mg tab ORAL SCH (10:03)
[2019-09-18] MEDS: BuPROPion SR 100mg tab ORAL SCH (10:04)
[2019-09-18] MEDS: DULoxetine 30mg cap ORAL SCH (10:04)
[2019-09-18] MEDS: Lisinopril 20mg tab ORAL SCH (10:04)
[2019-09-18] MEDS: Metoprolol Tartrate 100mg tab ORAL SCH ×2 (10:04→21:28)
[2019-09-18 12:00] VITALS: BP 150/80
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
[2019-09-18] MEDS: metFORMIN 500mg tab ORAL SCH ×2 (12:06→16:47)
--- NOTE | 2019-09-18 14:54 | Surgery Progress Note ---
Surgery Progress Note Subjective Additional Comments unna boot applied no n/v/f/c Objective Last 24 Hour Vital Signs Date Time Temp Pulse Resp B/P (MAP) Pulse Ox O2 Delivery O2 Flow Rate FiO2 09/18/19 10:05 82 153/89 09/18/19 10:04 82 153/89 09/18/19 10:04 153/89 09/18/19 09:00 Room Air 09/18/19 08:00 98.4 82 19 153/89 (110) 100 09/18/19 06:48 98.4 09/18/19 04:00 98.4 86 20 126/86 (99) 98 09/18/19 00:00 97.6 64 20 132/82 (99) 98 09/17/19 22:33 Room Air 09/17/19 20:59 78 148/98 09/17/19 20:00 97.8 89 20 149/89 (109) 98 09/17/19 17:09 87 162/101 09/17/19 16:00 98.1 87 19 162/101 (121) 100 I&O Intake and Output 09/17/19 09/18/19 19:00 07:00 Intake Total 2400 ml Output Total 3700 ml Balance -1300 ml Intake Oral 1200 ml Other 1200 ml Output Urine Total 3700 ml # Bowel Movements 1 Dressing: other Wound: other Drains: other Cardiovascular: RSR Respiratory: clear Abdomen: soft, non-tender, present bowel sounds Extremities: other Laboratory Tests Test 09/17/19 17:30 White Blood Count 6.1 K/UL (4.8-10.8) Red Blood Count 3.86 M/UL (4.70-6.10) L Hemoglobin 11.1 G/DL (14.2-18.0) L Hematocrit 35.3 % (42.0-52.0) L Mean Corpuscular Volume 91 FL (80-99) Mean Corpuscular Hemoglobin 28.7 PG (27.0-31.0) Mean Corpuscular Hemoglobin Concent 31.4 G/DL (32.0-36.0) L Red Cell Distribution Width 15.1 % (11.6-14.8) H Platelet Count 258 K/UL (150-450) Mean Platelet Volume 5.5 FL (6.5-10.1) L Neutrophils (%) (Auto) 60.0 % (45.0-75.0) Lymphocytes (%) (Auto) 30.5 % (20.0-45.0) Monocytes (%) (Auto) 7.3 % (1.0-10.0) Eosinophils (%) (Auto) 1.5 % (0.0-3.0) Basophils (%) (Auto) 0.8 % (0.0-2.0) Sodium Level 138 MMOL/L (136-145) Potassium Level 4.9 MMOL/L (3.5-5.1) Chloride Level 104 MMOL/L (98-107) Carbon Dioxide Level 26 MMOL/L (21-32) Anion Gap 8 mmol/L (5-15) Blood Urea Nitrogen 12 mg/dL (7-18) Creatinine 1.0 MG/DL (0.55-1.30) Estimat Glomerular Filtration Rate > 60 mL/min (>60) Glucose Level 98 MG/DL (74-106) Calcium Level 8.6 MG/DL (8.5-10.1) Total Bilirubin 0.3 MG/DL (0.2-1.0) Aspartate Amino Transf (AST/SGOT) 44 U/L (15-37) H Alanine Aminotransferase (ALT/SGPT) 40 U/L (12-78) Alkaline Phosphatase 66 U/L (46-116) Total Protein 6.8 G/DL (6.4-8.2) Albumin 2.2 G/DL (3.4-5.0) L Globulin 4.6 g/dL Albumin/Globulin Ratio 0.5 (1.0-2.7) L Plan Problems: (1) Sepsis Assessment & Plan: febrile, tachycardic, htn elevated lip abnormal lft's chronic wounds will provide local wound care needs improved hygiene okay for diet Abdominal US Negative for gallstones or dilated bile ducts Borderline hepatomegaly Incidental finding of small right renal cyst. will follow with recs. thank you (2) Cellulitis in diabetic foot Assessment & Plan: Patient states that no one's been taking care of his wounds and the other people are fully responsible for and that he can do anything on his own and other people need take care of it and if they do not continue to get worse. Patient states that he has no interest in being involved in it and that he anticipates and expects other people to take care of it as it is their responsibility in their duties. Denies any nausea vomiting fever chills. I had a long discussion with the patient regards to the history of this wound. Patient states that it for months now and I believe this may actually be even a little longer as he will lose to it. I discussed with patient eventual plans in the past and he states that he has been recommended to have entered pension including a BKA possible AKA on the right lower extremity. He states that at that time he had no interest and still currently has no interest and will always refused to have amputation. Patient states he has no interest in ever having an amputation and that if people would continue to do their job and make it better he would get better on its own Pt presented on admission with large ulceration LLE and ulcers L knee. Clusters of ulcers L knee. Base of each wound is moist and viable. Small amt sanguineous exudate noted.Periwound skin tone is darker without induration or change in skin temp. At distal lower ext ,pt noted to have large ulcer medial/posterior/lateral extending to R heel and dorsal R foot. Base of wound is shallow with scattered fibrinous slough. Areas of soft necrosis noted to R heel. Borders that are irregular and macerated. Moderate amt brownish exudate. Wound is malodorous. Tx.Plan: Cleanse wound with Dakin's willie 0.25%. Apply Xeroform to wounds . Cover with ABD pads and wrap with Kerlix from Base of toes Daily and prn. Swab wounds L knee with Betadine. Cover with Optifoam drsg.Change Daily and prn. Impression: Abnormal marrow signal in the distal fibula, talus, and calcaneus, with associated contrast enhancement. Findings are highly suspicious for acute osteomyelitis Diffuse soft tissue edema and enhancement, likely secondary to cellulitis given stated clinical history. No definite drainable soft tissue abscess demonstrated. Podiatry eval Given findings unlikely able to salvage limb as he has acute osteo, extensive cellulitis, pus and tissue loss chronically. would recommend BKA. patient not interested in surgery at this time. explained risks, benefits, and alternatives. patient very clear that he will not consider surgery at this time and only local care plus abx (3) Pancreatitis Assessment & Plan: see above Findings: Exam is somewhat limited due to body habitus and bowel gas. Gallbladder is unremarkable, without stones, wall thickening, nor pericholecystic fluid. Sonographic Alatorre's sign is negative. Common bile duct measures 6 mm in diameter. No intrahepatic biliary ductal dilatation. Liver demonstrates normal echogenicity, no focal abnormality. It is somewhat enlarged. Portal vein and hepatic veins are patent. Pancreas is unremarkable. Spleen is poorly seen, grossly unremarkable. Left kidney measures 11.9 cm in length. Right kidney measures 11.2 cm length. Both kidneys demonstrate normal echogenicity. There is no hydronephrosis. There is a small right renal cyst demonstrated. . Abdominal aorta is partially obscured by bowel gas, visualized portions are non-aneurysmal . Impression: Somewhat limited exam, as described Negative for gallstones or dilated bile ducts Borderline hepatomegaly Incidental finding of small right renal cyst. Note inability to visualize portions of the abdominal aorta and suboptimal visualization of the spleen trend labs thank you trending down improving Farhat Joaquin Sep 18, 2019 14:54
--- NOTE | 2019-09-18 15:00 | Progress Note ---
DATE: 09/18/2019 SUBJECTIVE: This is elderly male, currently in bed, complaining pain. OBJECTIVE: VITAL SIGNS: Blood pressure 126/86, pulse now 86, temperature is 98.4. CHEST: Bilaterally clear. CARDIOVASCULAR: Regular rhythm. ABDOMEN: Soft. EXTREMITIES: Right leg has wound. ASSESSMENT: 1. Cellulitis. 2. Right leg wound. 3. Osteomyelitis. 4. Substance abuse. PLAN: Continue wound care. Continue antibiotics. Continue Norvasc, metformin, vancomycin. ID is on case. Shubham Perez M.D. DR: SERA JOB#: [id number] CC:
--- NOTE | 2019-09-18 15:43 | Diagnostic Imaging Report ---
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 The left upper extremity was prepped with alcohol. All elements of maximal sterile barrier technique were followed including usage of a cap, mask, sterile gown, sterile gloves, hand hygiene and a large sterile sheet. Sonographic evaluation of the upper extremity was performed demonstrating a patent and compressible brachial vein. Access was obtained under real-time ultrasound guidance (with utilization of sterile gel and sterile probe cover) and digital image was saved and archived. An .018 wire was introduced. Needle exchanged for a 5 Swedish peel-away sheath. Measurements were obtained. A 5 Swedish dual-lumen Power PICC line catheter was cut to 50 cm and introduced over the wire. Peel-away sheath and wire were removed.Catheter was secured to the skin using 2-0 Prolene suture. Both ports aspirate and flush easily. A single fluoroscopic image shows the distal tip in the superior vena cava. Fluoroscopic time 27 second. Impression: Successful placement of an upper extremity PICC line catheter
[2019-09-18 16:00] VITALS: BP 137/82
--- NOTE | 2019-09-18 18:00 | Progress Note ---
DATE: 09/18/2019 SUBJECTIVE: The patient is asleep, arousable, able to answers questions. More coherent. Compliant with medications. No behavior issues noted. MENTAL STATUS EXAMINATION: The patient is alert, oriented times self, place, situation, and date. Mood is anxious. Affect is constricted, congruent with mood. Thought process is concrete. Thought content, no suicidal or homicidal ideation. Cognition is intact. Insight and judgment is fair. ASSESSMENT: 1. Amphetamine abuse. 2. Psychotic disorder. PLAN: 1. Continue the current psychotropic medication. 2. The patient should be discharged when medically cleared. Fany Reyes M.D. DR: LORI JOB#: [id number] CC:
[2019-09-18 19:48] VITALS: BP 137/90
[2019-09-18] MEDS: Dyna-Hex 2% Top Sol 2oz TOPIC SCH (21:08)
[2019-09-18] MEDS ORDERED: Clindamycin 900mg 50 ML IV SCH (22:00)
[2019-09-19] VITALS: BP 130/86
[2019-09-19] MEDS: Morphine Sulfate 2mg/ml Inj(IV/IM USE ONLY) IVP PRN ×3 (01:50→17:34)
[2019-09-19 04:00] VITALS: BP 158/63
[2019-09-19] MEDS: NovoLOG Insulin Flexpen SUBQ SCH ×4 (06:08→20:32)
[2019-09-19] MEDS: Vancomycin 1 GM in NS 275 ML IVPB SCH ×3 (06:26→21:32)
[2019-09-19] MEDS: Heparin 5000 units/ml inj SUBQ SCH ×3 (06:30→21:43)
[2019-09-19 08:00] VITALS: BP 133/81
[2019-09-19] MEDS: DULoxetine 30mg cap ORAL SCH (08:15)
[2019-09-19] MEDS: BuPROPion SR 100mg tab ORAL SCH (08:16)
[2019-09-19] MEDS: Lisinopril 20mg tab ORAL SCH (08:16)
[2019-09-19] MEDS: Oxybutynin 5mg tab ORAL SCH (08:16)
[2019-09-19] MEDS: Metoprolol Tartrate 100mg tab ORAL SCH ×2 (08:16→20:32)
[2019-09-19] MEDS: Dakin's 0.25% (Half Strength) 16oz TOPIC SCH (08:17)
[2019-09-19 12:00] VITALS: BP 114/79
[2019-09-19] MEDS: metFORMIN 500mg tab ORAL SCH ×2 (12:14→17:31)
--- NOTE | 2019-09-19 13:26 | Surgery Progress Note ---
Surgery Progress Note Subjective Additional Comments no acute events unna boot intact comfortable Objective Last 24 Hour Vital Signs Date Time Temp Pulse Resp B/P (MAP) Pulse Ox O2 Delivery O2 Flow Rate FiO2 09/19/19 12:00 97.9 82 20 114/79 (91) 97 09/19/19 09:48 98.1 09/19/19 09:00 Room Air 09/19/19 08:16 86 133/81 09/19/19 08:16 86 133/81 09/19/19 08:16 133/81 09/19/19 08:00 98.1 86 20 133/81 (98) 97 09/19/19 04:00 98.7 74 18 158/63 (94) 98 09/19/19 00:00 98.0 80 20 130/86 (101) 96 09/18/19 21:28 83 137/90 09/18/19 20:00 Room Air 09/18/19 19:48 98.2 83 22 137/90 (106) 95 09/18/19 16:00 97.9 83 20 137/82 (100) 96 I&O Intake and Output 09/18/19 09/19/19 19:00 07:00 Intake Total 425.000 ml 400 ml Output Total 500 ml Balance 425.000 ml -100 ml IV Total 425.000 ml 100 ml Other 300 ml Output Urine Total 500 ml # Voids 5 3 Dressing: other Wound: other Drains: other Cardiovascular: RSR Respiratory: decreased breath sounds Abdomen: soft, present bowel sounds Extremities: no cyanosis Plan Problems: (1) Sepsis Assessment & Plan: febrile, tachycardic, htn elevated lip abnormal lft's chronic wounds will provide local wound care needs improved hygiene okay for diet Abdominal US Negative for gallstones or dilated bile ducts Borderline hepatomegaly Incidental finding of small right renal cyst. will follow with recs. thank you (2) Cellulitis in diabetic foot Assessment & Plan: Patient states that no one's been taking care of his wounds and the other people are fully responsible for and that he can do anything on his own and other people need take care of it and if they do not continue to get worse. Patient states that he has no interest in being involved in it and that he anticipates and expects other people to take care of it as it is their responsibility in their duties. Denies any nausea vomiting fever chills. I had a long discussion with the patient regards to the history of this wound. Patient states that it for months now and I believe this may actually be even a little longer as he will lose to it. I discussed with patient eventual plans in the past and he states that he has been recommended to have entered pension including a BKA possible AKA on the right lower extremity. He states that at that time he had no interest and still currently has no interest and will always refused to have amputation. Patient states he has no interest in ever having an amputation and that if people would continue to do their job and make it better he would get better on its own Pt presented on admission with large ulceration LLE and ulcers L knee. Clusters of ulcers L knee. Base of each wound is moist and viable. Small amt sanguineous exudate noted.Periwound skin tone is darker without induration or change in skin temp. At distal lower ext ,pt noted to have large ulcer medial/posterior/lateral extending to R heel and dorsal R foot. Base of wound is shallow with scattered fibrinous slough. Areas of soft necrosis noted to R heel. Borders that are irregular and macerated. Moderate amt brownish exudate. Wound is malodorous. Tx.Plan: Cleanse wound with Dakin's willie 0.25%. Apply Xeroform to wounds . Cover with ABD pads and wrap with Kerlix from Base of toes Daily and prn. Swab wounds L knee with Betadine. Cover with Optifoam drsg.Change Daily and prn. Impression: Abnormal marrow signal in the distal fibula, talus, and calcaneus, with associated contrast enhancement. Findings are highly suspicious for acute osteomyelitis Diffuse soft tissue edema and enhancement, likely secondary to cellulitis given stated clinical history. No definite drainable soft tissue abscess demonstrated. Podiatry eval Given findings unlikely able to salvage limb as he has acute osteo, extensive cellulitis, pus and tissue loss chronically. would recommend BKA. patient not interested in surgery at this time. explained risks, benefits, and alternatives. patient very clear that he will not consider surgery at this time and only local care plus abx (3) Pancreatitis Assessment & Plan: see above Findings: Exam is somewhat limited due to body habitus and bowel gas. Gallbladder is unremarkable, without stones, wall thickening, nor pericholecystic fluid. Sonographic Alatorre's sign is negative. Common bile duct measures 6 mm in diameter. No intrahepatic biliary ductal dilatation. Liver demonstrates normal echogenicity, no focal abnormality. It is somewhat enlarged. Portal vein and hepatic veins are patent. Pancreas is unremarkable. Spleen is poorly seen, grossly unremarkable. Left kidney measures 11.9 cm in length. Right kidney measures 11.2 cm length. Both kidneys demonstrate normal echogenicity. There is no hydronephrosis. There is a small right renal cyst demonstrated. . Abdominal aorta is partially obscured by bowel gas, visualized portions are non-aneurysmal . Impression: Somewhat limited exam, as described Negative for gallstones or dilated bile ducts Borderline hepatomegaly Incidental finding of small right renal cyst. Note inability to visualize portions of the abdominal aorta and suboptimal visualization of the spleen trend labs thank you trending down improving Farhat Joaquin Sep 19, 2019 13:26
[2019-09-19 16:00] VITALS: BP 136/68
--- NOTE | 2019-09-19 16:23 | Infectious Diseases Prog Note ---
Assessment/Plan Assessment/Plan ASSESSMENT AND PLAN: 1. diphtheroids bacteremia/? 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 The patient has history of substance abuse. 3. Diabetes. 4. Hypertension. 5. Questionable psychiatric disease, he is on Wellbutrin. 6. History of atherosclerotic heart disease. 7. History of CHF. 8. Anemia. 9. History of thrombocytopenia. 10. Pancreatitis. 11. Surgery followup . 12. No known drug allergies. 13. Family history is noncontributory. 14. MAR was noted. 15. Case was discussed with RN. 16. Continue treatment per primary consultants. Subjective Constitutional: Denies: fever HEENT: Denies: congestion Respiratory: Denies: shortness of breath Cardiovascular: Denies: chest pain Gastrointestinal/Abdominal: Denies: nausea, vomiting, diarrhea Neurologic: Denies: headache Psychiatric: Denies: depression Skin: Denies: rash Hematologic: Denies: bleeding Musculoskeletal: Denies: pain Allergies: Coded Allergies: No Known Allergies (Unverified , 04/20/19) Objective Vital Signs Last 24 Hour Vital Signs Date Time Temp Pulse Resp B/P (MAP) Pulse Ox O2 Delivery O2 Flow Rate FiO2 09/19/19 16:00 98.8 79 20 136/68 (90) 98 09/19/19 12:00 97.9 82 20 114/79 (91) 97 09/19/19 09:48 98.1 09/19/19 09:00 Room Air 09/19/19 08:16 86 133/81 09/19/19 08:16 86 133/81 09/19/19 08:16 133/81 09/19/19 08:00 98.1 86 20 133/81 (98) 97 09/19/19 04:00 98.7 74 18 158/63 (94) 98 09/19/19 00:00 98.0 80 20 130/86 (101) 96 09/18/19 21:28 83 137/90 09/18/19 20:00 Room Air 09/18/19 19:48 98.2 83 22 137/90 (106) 95 Height (Feet): 6 Height (Inches): 2.00 Weight (Pounds): 302 General Appearance: no acute distress HEENT: normocephalic, atraumatic, anicteric, mucous membranes moist Respiratory/Chest: lungs clear, normal breath sounds, no respiratory distress Cardiovascular: normal rate, no gallop/murmur Abdomen: normal bowel sounds, soft, non tender, no organomegaly, non distended Genitourinary: other - nole Extremities: no cyanosis Skin: no rash, other - right foot covered Neurologic/Psychiatric: shingle catcher II-XII grossly normal, alert, oriented x 3, responsive Lymphatic: no neck adenopathy Musculoskeletal: no effusion Objective Impression: Markedly limited exam, as described Diffusely edematous and enhancing soft tissues of the forefoot, as described. Given stated clinical history, most likely secondary to cellulitis. No definite evidence of abscess No definite findings to suggest acute osteomyelitis. Impression: Abnormal marrow signal in the distal fibula, talus, and calcaneus, with associated contrast enhancement. Findings are highly suspicious for acute osteomyelitis Diffuse soft tissue edema and enhancement, likely secondary to cellulitis given stated clinical history. No definite drainable soft tissue abscess demonstrated. Microbiology Date/Time Source Procedure Growth Status 09/16/19 05:15 Blood Blood Culture - Preliminary NO GROWTH AFTER 48 HOURS Resulted Labs Test 09/17/19 17:30 White Blood Count 6.1 K/UL (4.8-10.8) Red Blood Count 3.86 M/UL (4.70-6.10) Hemoglobin 11.1 G/DL (14.2-18.0) Hematocrit 35.3 % (42.0-52.0) Mean Corpuscular Volume 91 FL (80-99) Mean Corpuscular Hemoglobin 28.7 PG (27.0-31.0) Mean Corpuscular Hemoglobin Concent 31.4 G/DL (32.0-36.0) Red Cell Distribution Width 15.1 % (11.6-14.8) Platelet Count 258 K/UL (150-450) Mean Platelet Volume 5.5 FL (6.5-10.1) Neutrophils (%) (Auto) 60.0 % (45.0-75.0) Lymphocytes (%) (Auto) 30.5 % (20.0-45.0) Monocytes (%) (Auto) 7.3 % (1.0-10.0) Eosinophils (%) (Auto) 1.5 % (0.0-3.0) Basophils (%) (Auto) 0.8 % (0.0-2.0) Sodium Level 138 MMOL/L (136-145) Potassium Level 4.9 MMOL/L (3.5-5.1) Chloride Level 104 MMOL/L (98-107) Carbon Dioxide Level 26 MMOL/L (21-32) Anion Gap 8 mmol/L (5-15) Blood Urea Nitrogen 12 mg/dL (7-18) Creatinine 1.0 MG/DL (0.55-1.30) Estimat Glomerular Filtration Rate > 60 mL/min (>60) Glucose Level 98 MG/DL (74-106) Calcium Level 8.6 MG/DL (8.5-10.1) Total Bilirubin 0.3 MG/DL (0.2-1.0) Aspartate Amino Transf (AST/SGOT) 44 U/L (15-37) Alanine Aminotransferase (ALT/SGPT) 40 U/L (12-78) Alkaline Phosphatase 66 U/L (46-116) Total Protein 6.8 G/DL (6.4-8.2) Albumin 2.2 G/DL (3.4-5.0) Globulin 4.6 g/dL Albumin/Globulin Ratio 0.5 (1.0-2.7) Current Medications Medications (Trade) Dose Ordered Sig/Lamont Route PRN Reason Start Time Stop Time Status Last Admin Dose Admin Acetaminophen (Tylenol) 650 mg Q6H PRN ORAL Mild Pain/Temp > 100.5 09/14/19 20:00 10/14/19 07:59 09/17/19 02:57 Amlodipine Besylate (Norvasc) 10 mg DAILY ORAL 09/17/19 16:00 10/17/19 15:59 09/19/19 08:16 Bupropion HCl (Wellbutrin SR) 100 mg DAILY ORAL 09/15/19 09:00 10/14/19 08:59 09/19/19 08:16 Chlorhexidine Gluconate (Crystal-Hex 2%) 1 applic DAILY@2000 TOPIC 09/17/19 20:00 10/17/19 19:59 09/17/19 20:00 Dextrose (Dextrose 50%) 25 ml Q30M PRN IV Hypoglycemia 09/14/19 19:30 10/13/19 18:59 Dextrose (Dextrose 50%) 50 ml Q30M PRN IV Hypoglycemia 09/14/19 19:30 10/13/19 18:59 Duloxetine HCl (Cymbalta) 30 mg DAILY ORAL 09/15/19 09:00 10/15/19 08:59 09/19/19 08:15 Heparin Sodium (Porcine) (Heparin 5000 units/ml) 5,000 units EVERY 8 HOURS SUBQ 09/14/19 22:00 10/13/19 21:59 09/19/19 13:23 Insulin Aspart (NovoLOG) BEFORE MEALS AND HS SUBQ 09/14/19 21:00 10/13/19 20:59 Lisinopril (PriniviL) 40 mg DAILY ORAL 09/15/19 09:00 10/14/19 08:59 09/19/19 08:16 Lorazepam (Ativan) 2 mg Q6H PRN ORAL For Anxiety 09/14/19 23:45 09/21/19 11:44 Meropenem 1 gm/ Sodium Chloride 100 ml @ 200 mls/hr Q8HR IVPB 09/15/19 22:00 10/25/19 23:59 09/19/19 13:21 Metformin HCl (Glucophage) 500 mg BIDLS ORAL 09/16/19 12:34 10/16/19 12:33 09/19/19 12:14 Metoprolol Tartrate (Lopressor) 100 mg EVERY 12 HOURS ORAL 09/14/19 21:00 10/13/19 22:44 09/19/19 08:16 Morphine Sulfate (Morphine Sulfate) 2 mg Q6H PRN IVP For breakthru Pain 09/14/19 22:45 09/20/19 22:44 09/19/19 09:18 Ondansetron HCl (Zofran) 4 mg Q6H PRN IVP Nausea & Vomiting 09/15/19 01:00 10/13/19 18:59 Oxybutynin Chloride (Ditropan) 5 mg DAILY ORAL 09/15/19 09:00 10/14/19 08:59 09/19/19 08:16 Quetiapine Fumarate (SEROqueL) 50 mg TID ORAL 09/15/19 09:00 10/14/19 12:59 09/19/19 12:14 Sodium Hypochlorite (Dakin's Half Strength) 1 applic DAILY TOPIC 09/15/19 18:00 10/15/19 17:59 09/19/19 08:17 Tramadol HCl (Ultram) 50 mg Q4H PRN ORAL For Pain 09/14/19 20:45 09/20/19 20:44 09/16/19 12:55 Vancomycin HCl (Vanco rx to dose) 1 ea DAILY PRN MISC Per rx protocol 09/15/19 09:00 10/13/19 18:59 Vancomycin HCl 1 gm/Sodium Chloride 275 ml @ 183.708 mls/hr Q8HR IVPB 09/15/19 14:00 10/25/19 23:59 09/19/19 13:22 Reg Sue MD Sep 19, 2019 16:23
[2019-09-19 20:00] VITALS: BP 96/56
[2019-09-19] MEDS: Dyna-Hex 2% Top Sol 2oz TOPIC SCH (20:53)
[2019-09-20] VITALS: BP 118/74
[2019-09-20 04:00] VITALS: BP 124/82
[2019-09-20] MEDS: Vancomycin 1 GM in NS 275 ML IVPB SCH ×3 (05:51→21:30)
[2019-09-20] MEDS: Heparin 5000 units/ml inj SUBQ SCH ×3 (05:59→21:33)
[2019-09-20] MEDS: NovoLOG Insulin Flexpen SUBQ SCH ×4 (06:27→21:00)
[2019-09-20 06:49] LABS: BASOPHILS % (AUTO) 0.9 % (0.0-2.0); EOSINOPHILS % (AUTO) 1.8 % (0.0-3.0); HEMATOCRIT 34.2 % (42.0-52.0); HEMOGLOBIN 11.3 G/DL (14.2-18.0); LYMPHOCYTES % (AUTO) 39.5 % (20.0-45.0); MEAN CORPUSCULAR VOLUME 88 FL (80-99); MONOCYTES % (AUTO) 7.5 % (1.0-10.0); NEUTROPHILS % (AUTO) 50.3 % (45.0-75.0); PLATELET COUNT 272 K/UL (150-450); RED BLOOD COUNT 3.89 M/UL (4.70-6.10); RED CELL DISTRIBUTION WIDTH 14.3 % (11.6-14.8); WHITE BLOOD COUNT 6.9 K/UL (4.8-10.8)
[2019-09-20 07:10] LABS: ALANINE AMINOTRANSFERASE 46 U/L (12-78); ALBUMIN 2.3 G/DL (3.4-5.0); ALBUMIN/GLOBULIN RATIO 0.4 (1.0-2.7); ALKALINE PHOSPHATASE 60 U/L (46-116); ANION GAP 6 mmol/L (5-15); ASPARTATE AMINO TRANSFERASE 48 U/L (15-37); BILIRUBIN,TOTAL 0.4 MG/DL (0.2-1.0); BLOOD UREA NITROGEN 16 mg/dL (7-18); CALCIUM 8.5 MG/DL (8.5-10.1); CARBON DIOXIDE 27 MMOL/L (21-32); CHLORIDE 103 MMOL/L (98-107); CREATININE 0.8 MG/DL (0.55-1.30); POTASSIUM 4.6 MMOL/L (3.5-5.1); SODIUM 136 MMOL/L (136-145)
[2019-09-20 08:00] VITALS: BP 131/69
[2019-09-20] MEDS: Dakin's 0.25% (Half Strength) 16oz TOPIC SCH (09:04)
[2019-09-20] MEDS: Oxybutynin 5mg tab ORAL SCH (09:04)
[2019-09-20] MEDS: Metoprolol Tartrate 100mg tab ORAL SCH ×2 (09:05→20:40)
[2019-09-20] MEDS: Lisinopril 20mg tab ORAL SCH (09:05)
[2019-09-20] MEDS: BuPROPion SR 100mg tab ORAL SCH (09:05)
[2019-09-20] MEDS: DULoxetine 30mg cap ORAL SCH (09:05)
[2019-09-20] MEDS ORDERED: NS 275ml ONE (09:57)
[2019-09-20] MEDS ORDERED: NS 500ML ONE (09:57)
[2019-09-20] MEDS ORDERED: Tubing IV Secondary IV ONE ×2 (09:57)
--- NOTE | 2019-09-20 11:19 | Surgery Progress Note ---
Surgery Progress Note Subjective Additional Comments no acute events comfortable stable dressings intact Objective Last 24 Hour Vital Signs Date Time Temp Pulse Resp B/P (MAP) Pulse Ox O2 Delivery O2 Flow Rate FiO2 09/20/19 09:05 92 131/69 09/20/19 09:05 92 131/69 09/20/19 09:05 131/69 09/20/19 09:00 Room Air 09/20/19 08:00 97.9 92 18 131/69 (89) 96 09/20/19 04:00 98.2 89 20 124/82 (96) 98 09/20/19 00:00 98.1 77 18 118/74 (89) 98 09/19/19 21:00 Room Air 09/19/19 20:32 85 96/56 09/19/19 20:00 98.2 85 18 96/56 (69) 98 09/19/19 18:04 98.8 09/19/19 16:00 98.8 79 20 136/68 (90) 98 09/19/19 12:00 97.9 82 20 114/79 (91) 97 I&O Intake and Output 09/19/19 09/20/19 19:00 07:00 Intake Total 2734.832 ml 1408.708 ml Output Total 2000 ml 1275 ml Balance 734.832 ml 133.708 ml Intake Oral 1800 ml 750 ml IV Total 934.832 ml 658.708 ml Output Urine Total 2000 ml 1275 ml Dressing: dry Wound: clean Cardiovascular: RSR Respiratory: clear Abdomen: non-tender, present bowel sounds Extremities: no tenderness, no cyanosis Laboratory Tests Test 09/20/19 05:50 White Blood Count 6.9 K/UL (4.8-10.8) Red Blood Count 3.89 M/UL (4.70-6.10) L Hemoglobin 11.3 G/DL (14.2-18.0) L Hematocrit 34.2 % (42.0-52.0) L Mean Corpuscular Volume 88 FL (80-99) Mean Corpuscular Hemoglobin 29.1 PG (27.0-31.0) Mean Corpuscular Hemoglobin Concent 33.1 G/DL (32.0-36.0) Red Cell Distribution Width 14.3 % (11.6-14.8) Platelet Count 272 K/UL (150-450) Mean Platelet Volume 5.2 FL (6.5-10.1) L Neutrophils (%) (Auto) 50.3 % (45.0-75.0) Lymphocytes (%) (Auto) 39.5 % (20.0-45.0) Monocytes (%) (Auto) 7.5 % (1.0-10.0) Eosinophils (%) (Auto) 1.8 % (0.0-3.0) Basophils (%) (Auto) 0.9 % (0.0-2.0) Sodium Level 136 MMOL/L (136-145) Potassium Level 4.6 MMOL/L (3.5-5.1) Chloride Level 103 MMOL/L (98-107) Carbon Dioxide Level 27 MMOL/L (21-32) Anion Gap 6 mmol/L (5-15) Blood Urea Nitrogen 16 mg/dL (7-18) Creatinine 0.8 MG/DL (0.55-1.30) Estimat Glomerular Filtration Rate > 60 mL/min (>60) Glucose Level 88 MG/DL (74-106) Calcium Level 8.5 MG/DL (8.5-10.1) Total Bilirubin 0.4 MG/DL (0.2-1.0) Aspartate Amino Transf (AST/SGOT) 48 U/L (15-37) H Alanine Aminotransferase (ALT/SGPT) 46 U/L (12-78) Alkaline Phosphatase 60 U/L (46-116) Total Protein 7.7 G/DL (6.4-8.2) Albumin 2.3 G/DL (3.4-5.0) L Globulin 5.4 g/dL Albumin/Globulin Ratio 0.4 (1.0-2.7) L Plan Problems: (1) Sepsis Assessment & Plan: febrile, tachycardic, htn elevated lip abnormal lft's chronic wounds will provide local wound care needs improved hygiene okay for diet Abdominal US Negative for gallstones or dilated bile ducts Borderline hepatomegaly Incidental finding of small right renal cyst. will follow with recs. thank you (2) Cellulitis in diabetic foot Assessment & Plan: Patient states that no one's been taking care of his wounds and the other people are fully responsible for and that he can do anything on his own and other people need take care of it and if they do not continue to get worse. Patient states that he has no interest in being involved in it and that he anticipates and expects other people to take care of it as it is their responsibility in their duties. Denies any nausea vomiting fever chills. I had a long discussion with the patient regards to the history of this wound. Patient states that it for months now and I believe this may actually be even a little longer as he will lose to it. I discussed with patient eventual plans in the past and he states that he has been recommended to have entered pension including a BKA possible AKA on the right lower extremity. He states that at that time he had no interest and still currently has no interest and will always refused to have amputation. Patient states he has no interest in ever having an amputation and that if people would continue to do their job and make it better he would get better on its own Pt presented on admission with large ulceration LLE and ulcers L knee. Clusters of ulcers L knee. Base of each wound is moist and viable. Small amt sanguineous exudate noted.Periwound skin tone is darker without induration or change in skin temp. At distal lower ext ,pt noted to have large ulcer medial/posterior/lateral extending to R heel and dorsal R foot. Base of wound is shallow with scattered fibrinous slough. Areas of soft necrosis noted to R heel. Borders that are irregular and macerated. Moderate amt brownish exudate. Wound is malodorous. Tx.Plan: Cleanse wound with Dakin's willie 0.25%. Apply Xeroform to wounds . Cover with ABD pads and wrap with Kerlix from Base of toes Daily and prn. Swab wounds L knee with Betadine. Cover with Optifoam drsg.Change Daily and prn. Impression: Abnormal marrow signal in the distal fibula, talus, and calcaneus, with associated contrast enhancement. Findings are highly suspicious for acute osteomyelitis Diffuse soft tissue edema and enhancement, likely secondary to cellulitis given stated clinical history. No definite drainable soft tissue abscess demonstrated. Podiatry eval Given findings unlikely able to salvage limb as he has acute osteo, extensive cellulitis, pus and tissue loss chronically. would recommend BKA. patient not interested in surgery at this time. explained risks, benefits, and alternatives. patient very clear that he will not consider surgery at this time and only local care plus abx (3) Pancreatitis Assessment & Plan: see above Findings: Exam is somewhat limited due to body habitus and bowel gas. Gallbladder is unremarkable, without stones, wall thickening, nor pericholecystic fluid. Sonographic Alatorre's sign is negative. Common bile duct measures 6 mm in diameter. No intrahepatic biliary ductal dilatation. Liver demonstrates normal echogenicity, no focal abnormality. It is somewhat enlarged. Portal vein and hepatic veins are patent. Pancreas is unremarkable. Spleen is poorly seen, grossly unremarkable. Left kidney measures 11.9 cm in length. Right kidney measures 11.2 cm length. Both kidneys demonstrate normal echogenicity. There is no hydronephrosis. There is a small right renal cyst demonstrated. . Abdominal aorta is partially obscured by bowel gas, visualized portions are non-aneurysmal . Impression: Somewhat limited exam, as described Negative for gallstones or dilated bile ducts Borderline hepatomegaly Incidental finding of small right renal cyst. Note inability to visualize portions of the abdominal aorta and suboptimal visualization of the spleen trend labs thank you trending down improving Farhat Joaquin Sep 20, 2019 11:19
[2019-09-20 12:00] VITALS: BP 127/70
--- NOTE | 2019-09-20 12:19 | Infectious Diseases Prog Note ---
Assessment/Plan Assessment/Plan ASSESSMENT AND PLAN: 1. diphtheroids bacteremia/? 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 The patient has history of substance abuse. 3. Diabetes. 4. Hypertension. 5. Questionable psychiatric disease, he is on Wellbutrin. 6. History of atherosclerotic heart disease. 7. History of CHF. 8. Anemia. 9. History of thrombocytopenia. 10. Pancreatitis. 11. Surgery followup . 12. No known drug allergies. 13. Family history is noncontributory. 14. MAR was noted. 15. Case was discussed with RN. 16. Continue treatment per primary consultants. Subjective Constitutional: Denies: fever HEENT: Denies: congestion Respiratory: Denies: shortness of breath Cardiovascular: Denies: chest pain Gastrointestinal/Abdominal: Denies: nausea, vomiting Genitourinary: Denies: other Neurologic: Denies: headache Psychiatric: Denies: depression Skin: Denies: rash Hematologic: Denies: bleeding Musculoskeletal: Denies: pain Allergies: Coded Allergies: No Known Allergies (Unverified , 04/20/19) Objective Vital Signs Last 24 Hour Vital Signs Date Time Temp Pulse Resp B/P (MAP) Pulse Ox O2 Delivery O2 Flow Rate FiO2 09/20/19 12:00 97.9 91 17 127/70 (89) 97 09/20/19 09:05 92 131/69 09/20/19 09:05 92 131/69 09/20/19 09:05 131/69 09/20/19 09:00 Room Air 09/20/19 08:00 97.9 92 18 131/69 (89) 96 09/20/19 04:00 98.2 89 20 124/82 (96) 98 09/20/19 00:00 98.1 77 18 118/74 (89) 98 09/19/19 21:00 Room Air 09/19/19 20:32 85 96/56 09/19/19 20:00 98.2 85 18 96/56 (69) 98 09/19/19 18:04 98.8 2/1/20 16:00 98.8 79 20 136/68 (90) 98 Height (Feet): 6 Height (Inches): 2.00 Weight (Pounds): 302 General Appearance: no acute distress HEENT: normocephalic, atraumatic, anicteric, mucous membranes moist Respiratory/Chest: lungs clear, normal breath sounds, no respiratory distress, no accessory muscle use Cardiovascular: normal rate, regular rhythm, no gallop/murmur, no JVD Abdomen: normal bowel sounds, soft, non tender, no organomegaly, non distended Genitourinary: other - no alexander Extremities: other - right foot covered Skin: no rash 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 Given stated clinical history, most likely secondary to cellulitis. No definite evidence of abscess No definite findings to suggest acute osteomyelitis. Impression: Abnormal marrow signal in the distal fibula, talus, and calcaneus, with associated contrast enhancement. Findings are highly suspicious for acute osteomyelitis Diffuse soft tissue edema and enhancement, likely secondary to cellulitis given stated clinical history. No definite drainable soft tissue abscess demonstrated. Microbiology Date/Time Source Procedure Growth Status 09/16/19 05:15 Blood Blood Culture - Preliminary NO GROWTH AFTER 72 HOURS Resulted Laboratory Tests Test 09/20/19 05:50 White Blood Count 6.9 K/UL (4.8-10.8) Red Blood Count 3.89 M/UL (4.70-6.10) L Hemoglobin 11.3 G/DL (14.2-18.0) L Hematocrit 34.2 % (42.0-52.0) L Mean Corpuscular Volume 88 FL (80-99) Mean Corpuscular Hemoglobin 29.1 PG (27.0-31.0) Mean Corpuscular Hemoglobin Concent 33.1 G/DL (32.0-36.0) Red Cell Distribution Width 14.3 % (11.6-14.8) Platelet Count 272 K/UL (150-450) Mean Platelet Volume 5.2 FL (6.5-10.1) L Neutrophils (%) (Auto) 50.3 % (45.0-75.0) Lymphocytes (%) (Auto) 39.5 % (20.0-45.0) Monocytes (%) (Auto) 7.5 % (1.0-10.0) Eosinophils (%) (Auto) 1.8 % (0.0-3.0) Basophils (%) (Auto) 0.9 % (0.0-2.0) Sodium Level 136 MMOL/L (136-145) Potassium Level 4.6 MMOL/L (3.5-5.1) Chloride Level 103 MMOL/L (98-107) Carbon Dioxide Level 27 MMOL/L (21-32) Anion Gap 6 mmol/L (5-15) Blood Urea Nitrogen 16 mg/dL (7-18) Creatinine 0.8 MG/DL (0.55-1.30) Estimat Glomerular Filtration Rate > 60 mL/min (>60) Glucose Level 88 MG/DL (74-106) Calcium Level 8.5 MG/DL (8.5-10.1) Total Bilirubin 0.4 MG/DL (0.2-1.0) Aspartate Amino Transf (AST/SGOT) 48 U/L (15-37) H Alanine Aminotransferase (ALT/SGPT) 46 U/L (12-78) Alkaline Phosphatase 60 U/L (46-116) Total Protein 7.7 G/DL (6.4-8.2) Albumin 2.3 G/DL (3.4-5.0) L Globulin 5.4 g/dL Albumin/Globulin Ratio 0.4 (1.0-2.7) L Current Medications Medications (Trade) Dose Ordered Sig/Lamont Route PRN Reason Start Time Stop Time Status Last Admin Dose Admin Acetaminophen (Tylenol) 650 mg Q6H PRN ORAL Mild Pain/Temp > 100.5 09/14/19 20:00 10/14/19 07:59 09/17/19 02:57 Amlodipine Besylate (Norvasc) 10 mg DAILY ORAL 09/17/19 16:00 10/17/19 15:59 09/20/19 09:05 Bupropion HCl (Wellbutrin SR) 100 mg DAILY ORAL 09/15/19 09:00 10/14/19 08:59 09/20/19 09:05 Chlorhexidine Gluconate (Crystal-Hex 2%) 1 applic DAILY@2000 TOPIC 09/17/19 20:00 10/17/19 19:59 09/19/19 20:53 Dextrose (Dextrose 50%) 25 ml Q30M PRN IV Hypoglycemia 09/14/19 19:30 10/13/19 18:59 Dextrose (Dextrose 50%) 50 ml Q30M PRN IV Hypoglycemia 09/14/19 19:30 10/13/19 18:59 Duloxetine HCl (Cymbalta) 30 mg DAILY ORAL 09/15/19 09:00 10/15/19 08:59 09/20/19 09:05 Heparin Sodium (Porcine) (Heparin 5000 units/ml) 5,000 units EVERY 8 HOURS SUBQ 09/14/19 22:00 10/13/19 21:59 09/20/19 05:59 Insulin Aspart (NovoLOG) BEFORE MEALS AND HS SUBQ 09/14/19 21:00 10/13/19 20:59 Lisinopril (PriniviL) 40 mg DAILY ORAL 09/15/19 09:00 10/14/19 08:59 09/20/19 09:05 Lorazepam (Ativan) 2 mg Q6H PRN ORAL For Anxiety 09/14/19 23:45 09/21/19 11:44 Meropenem 1 gm/ Sodium Chloride 100 ml @ 200 mls/hr Q8HR IVPB 09/15/19 22:00 10/25/19 23:59 09/20/19 05:51 Metformin HCl (Glucophage) 500 mg BIDLS ORAL 09/16/19 12:34 10/16/19 12:33 09/19/19 17:31 Metoprolol Tartrate (Lopressor) 100 mg EVERY 12 HOURS ORAL 09/14/19 21:00 10/13/19 22:44 09/20/19 09:05 Morphine Sulfate (Morphine Sulfate) 2 mg Q6H PRN IVP For breakthru Pain 09/14/19 22:45 09/20/19 22:44 09/19/19 17:34 Ondansetron HCl (Zofran) 4 mg Q6H PRN IVP Nausea & Vomiting 09/15/19 01:00 10/13/19 18:59 Oxybutynin Chloride (Ditropan) 5 mg DAILY ORAL 09/15/19 09:00 10/14/19 08:59 09/20/19 09:04 Quetiapine Fumarate (SEROqueL) 50 mg TID ORAL 09/15/19 09:00 10/14/19 12:59 09/20/19 09:04 Sodium Hypochlorite (Dakin's Half Strength) 1 applic DAILY TOPIC 09/15/19 18:00 10/15/19 17:59 09/20/19 09:04 Tramadol HCl (Ultram) 50 mg Q4H PRN ORAL For Pain 09/14/19 20:45 09/20/19 20:44 09/16/19 12:55 Vancomycin HCl (Vanco rx to dose) 1 ea DAILY PRN MISC Per rx protocol 09/15/19 09:00 10/13/19 18:59 Vancomycin HCl 1 gm/Sodium Chloride 275 ml @ 183.708 mls/hr Q8HR IVPB 09/15/19 14:00 10/25/19 23:59 09/20/19 05:51 Reg Sue MD Sep 20, 2019 12:19
[2019-09-20] MEDS: metFORMIN 500mg tab ORAL SCH ×2 (12:31→17:25)
[2019-09-20] MEDS: Morphine Sulfate 2mg/ml Inj(IV/IM USE ONLY) IVP PRN ×2 (12:32→20:41)
[2019-09-20 16:00] VITALS: BP 122/80
[2019-09-20 20:00] VITALS: BP 133/79
[2019-09-20] MEDS: Dyna-Hex 2% Top Sol 2oz TOPIC SCH (20:40)
[2019-09-21] VITALS: BP 127/88
[2019-09-21 04:00] VITALS: BP 122/78
[2019-09-21] MEDS: Vancomycin 1 GM in NS 275 ML IVPB SCH ×3 (05:56→22:15)
[2019-09-21] MEDS: NovoLOG Insulin Flexpen SUBQ SCH ×4 (05:56→21:00)
[2019-09-21] MEDS: Heparin 5000 units/ml inj SUBQ SCH ×3 (06:26→22:19)
[2019-09-21] MEDS ORDERED: traMADol 50mg tab ORAL PRN (07:45)
[2019-09-21 07:55] LABS: BASOPHILS % (AUTO) 0.8 % (0.0-2.0); HEMATOCRIT 32.8 % (42.0-52.0); HEMOGLOBIN 10.9 G/DL (14.2-18.0); LYMPHOCYTES % (AUTO) 43.5 % (20.0-45.0); MEAN CORPUSCULAR VOLUME 88 FL (80-99); NEUTROPHILS % (AUTO) 43.7 % (45.0-75.0); PLATELET COUNT 219 K/UL (150-450); RED BLOOD COUNT 3.73 M/UL (4.70-6.10); RED CELL DISTRIBUTION WIDTH 14.4 % (11.6-14.8); WHITE BLOOD COUNT 5.7 K/UL (4.8-10.8)
[2019-09-21 08:00] VITALS: BP 134/98
[2019-09-21 08:25] LABS: ANION GAP 6 mmol/L (5-15); BLOOD UREA NITROGEN 16 mg/dL (7-18); CARBON DIOXIDE 25 MMOL/L (21-32); CHLORIDE 105 MMOL/L (98-107); CREATININE 0.9 MG/DL (0.55-1.30); POTASSIUM 4.6 MMOL/L (3.5-5.1); SODIUM 136 MMOL/L (136-145)
[2019-09-21] MEDS: BuPROPion SR 100mg tab ORAL SCH (08:43)
[2019-09-21] MEDS: Lisinopril 20mg tab ORAL SCH (08:43)
[2019-09-21] MEDS: Oxybutynin 5mg tab ORAL SCH (08:43)
[2019-09-21] MEDS: DULoxetine 30mg cap ORAL SCH (08:43)
[2019-09-21] MEDS: Morphine Sulfate 2mg/ml Inj(IV/IM USE ONLY) IVP PRN ×3 (08:44→21:03)
[2019-09-21] MEDS: Dakin's 0.25% (Half Strength) 16oz TOPIC SCH (08:48)
[2019-09-21] MEDS: Metoprolol Tartrate 100mg tab ORAL SCH ×2 (08:49→21:02)
[2019-09-21] MEDS: metFORMIN 500mg tab ORAL SCH ×2 (11:30→16:30)
--- NOTE | 2019-09-21 11:33 | Surgery Progress Note ---
Surgery Progress Note Subjective Additional Comments picc placed abx plan for 6 weeks cont with dressings Objective Last 24 Hour Vital Signs Date Time Temp Pulse Resp B/P (MAP) Pulse Ox O2 Delivery O2 Flow Rate FiO2 09/21/19 09:00 Room Air 09/21/19 08:49 78 134/98 09/21/19 08:43 78 134/98 09/21/19 08:43 134/98 09/21/19 08:00 98.9 78 19 134/98 (110) 96 09/21/19 04:00 98.1 72 20 122/78 (93) 98 09/21/19 00:00 98.2 89 18 127/88 (101) 98 09/20/19 21:00 Room Air 09/20/19 20:40 85 133/79 09/20/19 20:00 98.4 85 18 133/79 (97) 98 09/20/19 16:00 98.2 85 18 122/80 (94) 97 09/20/19 13:02 97.9 09/20/19 12:00 97.9 91 17 127/70 (89) 97 I&O Intake and Output 09/20/19 09/21/19 19:00 07:00 Intake Total 751.124 ml 3458.708 ml Output Total 1050 ml Balance 751.124 ml 2408.708 ml Intake Oral 1600 ml IV Total 751.124 ml 658.708 ml Other 1200 ml Output Urine Total 1050 ml Dressing: dry Wound: clean Cardiovascular: RSR Respiratory: clear Abdomen: soft, non-tender, present bowel sounds Extremities: no cyanosis, other Laboratory Tests Test 09/21/19 04:03 White Blood Count 5.7 K/UL (4.8-10.8) Red Blood Count 3.73 M/UL (4.70-6.10) L Hemoglobin 10.9 G/DL (14.2-18.0) L Hematocrit 32.8 % (42.0-52.0) L Mean Corpuscular Volume 88 FL (80-99) Mean Corpuscular Hemoglobin 29.2 PG (27.0-31.0) Mean Corpuscular Hemoglobin Concent 33.2 G/DL (32.0-36.0) Red Cell Distribution Width 14.4 % (11.6-14.8) Platelet Count 219 K/UL (150-450) Mean Platelet Volume 4.6 FL (6.5-10.1) L Neutrophils (%) (Auto) 43.7 % (45.0-75.0) L Lymphocytes (%) (Auto) 43.5 % (20.0-45.0) Monocytes (%) (Auto) 10.0 % (1.0-10.0) Eosinophils (%) (Auto) 2.0 % (0.0-3.0) Basophils (%) (Auto) 0.8 % (0.0-2.0) Sodium Level 136 MMOL/L (136-145) Potassium Level 4.6 MMOL/L (3.5-5.1) Chloride Level 105 MMOL/L (98-107) Carbon Dioxide Level 25 MMOL/L (21-32) Anion Gap 6 mmol/L (5-15) Blood Urea Nitrogen 16 mg/dL (7-18) Creatinine 0.9 MG/DL (0.55-1.30) Estimat Glomerular Filtration Rate > 60 mL/min (>60) Glucose Level 82 MG/DL (74-106) Calcium Level 9.0 MG/DL (8.5-10.1) Plan Problems: (1) Sepsis Assessment & Plan: febrile, tachycardic, htn elevated lip improved abnormal lft's improved chronic wounds will provide local wound care needs improved hygiene okay for diet Abdominal US Negative for gallstones or dilated bile ducts Borderline hepatomegaly Incidental finding of small right renal cyst. will follow with recs. thank you (2) Cellulitis in diabetic foot Assessment & Plan: Patient states that no one's been taking care of his wounds and the other people are fully responsible for and that he can do anything on his own and other people need take care of it and if they do not continue to get worse. Patient states that he has no interest in being involved in it and that he anticipates and expects other people to take care of it as it is their responsibility in their duties. Denies any nausea vomiting fever chills. I had a long discussion with the patient regards to the history of this wound. Patient states that it for months now and I believe this may actually be even a little longer as he will lose to it. I discussed with patient eventual plans in the past and he states that he has been recommended to have entered pension including a BKA possible AKA on the right lower extremity. He states that at that time he had no interest and still currently has no interest and will always refused to have amputation. Patient states he has no interest in ever having an amputation and that if people would continue to do their job and make it better he would get better on its own Pt presented on admission with large ulceration LLE and ulcers L knee. Clusters of ulcers L knee. Base of each wound is moist and viable. Small amt sanguineous exudate noted.Periwound skin tone is darker without induration or change in skin temp. At distal lower ext ,pt noted to have large ulcer medial/posterior/lateral extending to R heel and dorsal R foot. Base of wound is shallow with scattered fibrinous slough. Areas of soft necrosis noted to R heel. Borders that are irregular and macerated. Moderate amt brownish exudate. Wound is malodorous. Tx.Plan: Cleanse wound with Dakin's willie 0.25%. Apply Xeroform to wounds . Cover with ABD pads and wrap with Kerlix from Base of toes Daily and prn. Swab wounds L knee with Betadine. Cover with Optifoam drsg.Change Daily and prn. Impression: Abnormal marrow signal in the distal fibula, talus, and calcaneus, with associated contrast enhancement. Findings are highly suspicious for acute osteomyelitis Diffuse soft tissue edema and enhancement, likely secondary to cellulitis given stated clinical history. No definite drainable soft tissue abscess demonstrated. Podiatry eval Given findings unlikely able to salvage limb as he has acute osteo, extensive cellulitis, pus and tissue loss chronically. would recommend BKA. patient not interested in surgery at this time. explained risks, benefits, and alternatives. patient very clear that he will not consider surgery at this time and only local care plus abx PICC placed abx as per ID (3) Pancreatitis Assessment & Plan: see above Findings: Exam is somewhat limited due to body habitus and bowel gas. Gallbladder is unremarkable, without stones, wall thickening, nor pericholecystic fluid. Sonographic Alatorre's sign is negative. Common bile duct measures 6 mm in diameter. No intrahepatic biliary ductal dilatation. Liver demonstrates normal echogenicity, no focal abnormality. It is somewhat enlarged. Portal vein and hepatic veins are patent. Pancreas is unremarkable. Spleen is poorly seen, grossly unremarkable. Left kidney measures 11.9 cm in length. Right kidney measures 11.2 cm length. Both kidneys demonstrate normal echogenicity. There is no hydronephrosis. There is a small right renal cyst demonstrated. . Abdominal aorta is partially obscured by bowel gas, visualized portions are non-aneurysmal . Impression: Somewhat limited exam, as described Negative for gallstones or dilated bile ducts Borderline hepatomegaly Incidental finding of small right renal cyst. Note inability to visualize portions of the abdominal aorta and suboptimal visualization of the spleen trend labs thank you trending down improving Farhat Joaquin Sep 21, 2019 11:33
[2019-09-21 12:00] VITALS: BP 149/89
[2019-09-21 16:00] VITALS: BP 124/80
[2019-09-21 20:00] VITALS: BP 138/87
--- NOTE | 2019-09-21 20:15 | Progress Note ---
DATE: 09/21/2019 SUBJECTIVE: This is an elderly male, currently sitting in the bedside. He looks comfortable PHYSICAL EXAMINATION: VITAL SIGNS: Blood pressure is 124/80, pulse 82, no fever. CHEST: Bilaterally clear. CARDIOVASCULAR: Regular rhythm. ABDOMEN: Soft. EXTREMITIES: No edema. The patient has a bandage on the right foot. LABORATORY DATA: White count 5.3, hemoglobin 11. Chemistry panel, BUN 16, creatinine 0.9. ASSESSMENT: 1. Osteomyelitis of right foot. 2. Diabetes. 3. Hypertension. PLAN: 1. The patient is requesting regular diet. We will add regular diet . 2. Continue sliding scale and Accu-Chek. 3. We will continue antibiotic. 4. Continue wound care. 5. Discussed with foster care case manager. 6. Discharge plan to [place]. Shubham Perez M.D. DR: Jam JOB#: [id number] CC:
[2019-09-21] MEDS: Dyna-Hex 2% Top Sol 2oz TOPIC SCH (21:03)
[2019-09-22] VITALS: BP 142/88
--- NOTE | 2019-09-22 01:45 | Progress Note ---
DATE: 09/21/2019 SUBJECTIVE: The patient is calm in bed. No behavior issues noted. Able to answer the questions. More alert. Less anxious. MENTAL STATUS EXAMINATION: Alert and oriented times self, place, situation, and date. Mood is neutral. Affect is constricted, congruent with mood. Thought process is linear and goal oriented. Thought content, no suicidal or homicidal ideation. Cognition is intact. Insight and judgment . ASSESSMENT: 1. Amphetamine abuse. 2. Psychotic disorder. PLAN: 1. Continue Seroquel. 2. Continue the Ativan. 3. Continue the Wellbutrin SR. 4. Continue to follow and readjust the medications. 5. Discussed with the nurse. Fany Reyes M.D. DR: JOANNA JOB#: [id number] CC:
[2019-09-22] MEDS: Morphine Sulfate 2mg/ml Inj(IV/IM USE ONLY) IVP PRN ×4 (03:36→22:24)
[2019-09-22 04:00] VITALS: BP 135/86
[2019-09-22] MEDS: Vancomycin 1 GM in NS 275 ML IVPB SCH ×3 (05:45→21:41)
[2019-09-22] MEDS: Heparin 5000 units/ml inj SUBQ SCH ×3 (05:49→21:50)
[2019-09-22] MEDS: NovoLOG Insulin Flexpen SUBQ SCH ×4 (06:30→21:00)
[2019-09-22 08:00] VITALS: BP 135/103
[2019-09-22] MEDS: BuPROPion SR 100mg tab ORAL SCH (08:53)
[2019-09-22] MEDS: Oxybutynin 5mg tab ORAL SCH (08:53)
[2019-09-22] MEDS: Metoprolol Tartrate 100mg tab ORAL SCH ×2 (08:54→21:42)
[2019-09-22] MEDS: DULoxetine 30mg cap ORAL SCH (08:54)
[2019-09-22] MEDS: Dakin's 0.25% (Half Strength) 16oz TOPIC SCH (08:54)
[2019-09-22] MEDS: Lisinopril 20mg tab ORAL SCH (08:54)
[2019-09-22 12:00] VITALS: BP 149/89
[2019-09-22] MEDS: metFORMIN 500mg tab ORAL SCH ×2 (12:06→16:30)
--- NOTE | 2019-09-22 13:42 | Surgery Progress Note ---
Surgery Progress Note Subjective Additional Comments no acute events improving d/c planning Objective Last 24 Hour Vital Signs Date Time Temp Pulse Resp B/P (MAP) Pulse Ox O2 Delivery O2 Flow Rate FiO2 09/22/19 12:00 98.9 73 18 149/89 (109) 97 09/22/19 09:00 Room Air 09/22/19 08:54 79 135/103 09/22/19 08:54 135/103 09/22/19 08:53 79 135/103 09/22/19 08:00 98.9 79 17 135/103 (114) 96 09/22/19 04:00 97.0 66 20 135/86 (102) 98 09/22/19 00:00 98.1 86 20 142/88 (106) 98 09/21/19 21:02 81 128/74 09/21/19 21:00 Room Air 09/21/19 20:00 97.3 85 20 138/87 (104) 99 09/21/19 16:00 97.2 82 18 124/80 (95) 96 I&O Intake and Output 09/21/19 09/22/19 19:00 07:00 Intake Total 466.292 ml 1975.000 ml Output Total 300 ml Balance 466.292 ml 1675.000 ml IV Total 466.292 ml 375.000 ml Other 1600 ml Output Urine Total 300 ml # Bowel Movements 1 Dressing: saturated Wound: other Drains: other Cardiovascular: RSR Respiratory: decreased breath sounds Abdomen: soft, present bowel sounds Extremities: no cyanosis, other Plan Problems: (1) Sepsis Assessment & Plan: febrile, tachycardic, htn elevated lip improved abnormal lft's improved chronic wounds will provide local wound care needs improved hygiene okay for diet Abdominal US Negative for gallstones or dilated bile ducts Borderline hepatomegaly Incidental finding of small right renal cyst. will follow with recs. thank you (2) Cellulitis in diabetic foot Assessment & Plan: Patient states that no one's been taking care of his wounds and the other people are fully responsible for and that he can do anything on his own and other people need take care of it and if they do not continue to get worse. Patient states that he has no interest in being involved in it and that he anticipates and expects other people to take care of it as it is their responsibility in their duties. Denies any nausea vomiting fever chills. I had a long discussion with the patient regards to the history of this wound. Patient states that it for months now and I believe this may actually be even a little longer as he will lose to it. I discussed with patient eventual plans in the past and he states that he has been recommended to have entered pension including a BKA possible AKA on the right lower extremity. He states that at that time he had no interest and still currently has no interest and will always refused to have amputation. Patient states he has no interest in ever having an amputation and that if people would continue to do their job and make it better he would get better on its own Pt presented on admission with large ulceration LLE and ulcers L knee. Clusters of ulcers L knee. Base of each wound is moist and viable. Small amt sanguineous exudate noted.Periwound skin tone is darker without induration or change in skin temp. At distal lower ext ,pt noted to have large ulcer medial/posterior/lateral extending to R heel and dorsal R foot. Base of wound is shallow with scattered fibrinous slough. Areas of soft necrosis noted to R heel. Borders that are irregular and macerated. Moderate amt brownish exudate. Wound is malodorous. Tx.Plan: Cleanse wound with Dakin's willie 0.25%. Apply Xeroform to wounds . Cover with ABD pads and wrap with Kerlix from Base of toes Daily and prn. Swab wounds L knee with Betadine. Cover with Optifoam drsg.Change Daily and prn. Impression: Abnormal marrow signal in the distal fibula, talus, and calcaneus, with associated contrast enhancement. Findings are highly suspicious for acute osteomyelitis Diffuse soft tissue edema and enhancement, likely secondary to cellulitis given stated clinical history. No definite drainable soft tissue abscess demonstrated. Podiatry eval Given findings unlikely able to salvage limb as he has acute osteo, extensive cellulitis, pus and tissue loss chronically. would recommend BKA. patient not interested in surgery at this time. explained risks, benefits, and alternatives. patient very clear that he will not consider surgery at this time and only local care plus abx PICC placed abx as per ID d/c planning (3) Pancreatitis Assessment & Plan: see above Findings: Exam is somewhat limited due to body habitus and bowel gas. Gallbladder is unremarkable, without stones, wall thickening, nor pericholecystic fluid. Sonographic Alatorre's sign is negative. Common bile duct measures 6 mm in diameter. No intrahepatic biliary ductal dilatation. Liver demonstrates normal echogenicity, no focal abnormality. It is somewhat enlarged. Portal vein and hepatic veins are patent. Pancreas is unremarkable. Spleen is poorly seen, grossly unremarkable. Left kidney measures 11.9 cm in length. Right kidney measures 11.2 cm length. Both kidneys demonstrate normal echogenicity. There is no hydronephrosis. There is a small right renal cyst demonstrated. . Abdominal aorta is partially obscured by bowel gas, visualized portions are non-aneurysmal . Impression: Somewhat limited exam, as described Negative for gallstones or dilated bile ducts Borderline hepatomegaly Incidental finding of small right renal cyst. Note inability to visualize portions of the abdominal aorta and suboptimal visualization of the spleen trend labs thank you trending down improving Farhat Joaquin Sep 22, 2019 13:42
[2019-09-22 16:00] VITALS: BP 156/102
--- NOTE | 2019-09-22 17:42 | Infectious Diseases Prog Note ---
Assessment/Plan Assessment/Plan ASSESSMENT AND PLAN: 1. diphtheroids bacteremia/? 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 The patient has history of substance abuse. 3. Diabetes. 4. Hypertension. 5. Questionable psychiatric disease, he is on Wellbutrin. 6. History of atherosclerotic heart disease. 7. History of CHF. 8. Anemia. 9. History of thrombocytopenia. 10. Pancreatitis. 11. Surgery followup . 12. No known drug allergies. 13. Family history is noncontributory. 14. MAR was noted. 15. Case was discussed with RN. 16. Continue treatment per primary consultants. Subjective Constitutional: Denies: fever HEENT: Denies: congestion Respiratory: Denies: shortness of breath Cardiovascular: Denies: chest pain Gastrointestinal/Abdominal: Denies: nausea, vomiting, diarrhea Genitourinary: Denies: dysuria, hematuria Neurologic: Denies: headache Psychiatric: Denies: depression Skin: Denies: rash Hematologic: Denies: bleeding Musculoskeletal: Reports: pain - right foot pain controlled Allergies: Coded Allergies: No Known Allergies (Unverified , 04/20/19) Objective Vital Signs Last 24 Hour Vital Signs Date Time Temp Pulse Resp B/P (MAP) Pulse Ox O2 Delivery O2 Flow Rate FiO2 09/22/19 16:00 97.7 62 18 156/102 (120) 95 09/22/19 12:00 98.9 73 18 149/89 (109) 97 09/22/19 09:00 Room Air 09/22/19 08:54 79 135/103 09/22/19 08:54 135/103 09/22/19 08:53 79 135/103 09/22/19 08:00 98.9 79 17 135/103 (114) 96 09/22/19 04:00 97.0 66 20 135/86 (102) 98 09/22/19 00:00 98.1 86 20 142/88 (106) 98 09/21/19 21:02 81 128/74 09/21/19 21:00 Room Air 09/21/19 20:00 97.3 85 20 138/87 (104) 99 Height (Feet): 6 Height (Inches): 2.00 Weight (Pounds): 302 General Appearance: no acute distress HEENT: normocephalic, atraumatic, anicteric, mucous membranes moist Respiratory/Chest: lungs clear, normal breath sounds, no respiratory distress, no accessory muscle use Cardiovascular: normal rate, regular rhythm, no gallop/murmur, no JVD Abdomen: normal bowel sounds, soft, non tender, no organomegaly, non distended Genitourinary: other - no alexander Extremities: other - right foot covered Skin: no rash 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 Given stated clinical history, most likely secondary to cellulitis. No definite evidence of abscess No definite findings to suggest acute osteomyelitis. Impression: Abnormal marrow signal in the distal fibula, talus, and calcaneus, with associated contrast enhancement. Findings are highly suspicious for acute osteomyelitis Diffuse soft tissue edema and enhancement, likely secondary to cellulitis given stated clinical history. No definite drainable soft tissue abscess demonstrated. Microbiology Date/Time Source Procedure Growth Status 09/16/19 05:15 Blood Blood Culture - Final NO GROWTH AFTER 5 DAYS Complete cultures - noted Labs Test 09/20/19 05:50 09/21/19 04:03 White Blood Count 6.9 K/UL (4.8-10.8) 5.7 K/UL (4.8-10.8) Red Blood Count 3.89 M/UL (4.70-6.10) 3.73 M/UL (4.70-6.10) Hemoglobin 11.3 G/DL (14.2-18.0) 10.9 G/DL (14.2-18.0) Hematocrit 34.2 % (42.0-52.0) 32.8 % (42.0-52.0) Mean Corpuscular Volume 88 FL (80-99) 88 FL (80-99) Mean Corpuscular Hemoglobin 29.1 PG (27.0-31.0) 29.2 PG (27.0-31.0) Mean Corpuscular Hemoglobin Concent 33.1 G/DL (32.0-36.0) 33.2 G/DL (32.0-36.0) Red Cell Distribution Width 14.3 % (11.6-14.8) 14.4 % (11.6-14.8) Platelet Count 272 K/UL (150-450) 219 K/UL (150-450) Mean Platelet Volume 5.2 FL (6.5-10.1) 4.6 FL (6.5-10.1) Neutrophils (%) (Auto) 50.3 % (45.0-75.0) 43.7 % (45.0-75.0) Lymphocytes (%) (Auto) 39.5 % (20.0-45.0) 43.5 % (20.0-45.0) Monocytes (%) (Auto) 7.5 % (1.0-10.0) 10.0 % (1.0-10.0) Eosinophils (%) (Auto) 1.8 % (0.0-3.0) 2.0 % (0.0-3.0) Basophils (%) (Auto) 0.9 % (0.0-2.0) 0.8 % (0.0-2.0) Sodium Level 136 MMOL/L (136-145) 136 MMOL/L (136-145) Potassium Level 4.6 MMOL/L (3.5-5.1) 4.6 MMOL/L (3.5-5.1) Chloride Level 103 MMOL/L (98-107) 105 MMOL/L (98-107) Carbon Dioxide Level 27 MMOL/L (21-32) 25 MMOL/L (21-32) Anion Gap 6 mmol/L (5-15) 6 mmol/L (5-15) Blood Urea Nitrogen 16 mg/dL (7-18) 16 mg/dL (7-18) Creatinine 0.8 MG/DL (0.55-1.30) 0.9 MG/DL (0.55-1.30) Estimat Glomerular Filtration Rate > 60 mL/min (>60) > 60 mL/min (>60) Glucose Level 88 MG/DL (74-106) 82 MG/DL (74-106) Calcium Level 8.5 MG/DL (8.5-10.1) 9.0 MG/DL (8.5-10.1) Total Bilirubin 0.4 MG/DL (0.2-1.0) Aspartate Amino Transf (AST/SGOT) 48 U/L (15-37) Alanine Aminotransferase (ALT/SGPT) 46 U/L (12-78) Alkaline Phosphatase 60 U/L (46-116) Total Protein 7.7 G/DL (6.4-8.2) Albumin 2.3 G/DL (3.4-5.0) Globulin 5.4 g/dL Albumin/Globulin Ratio 0.4 (1.0-2.7) Current Medications Medications (Trade) Dose Ordered Sig/Lamont Route PRN Reason Start Time Stop Time Status Last Admin Dose Admin Acetaminophen (Tylenol) 650 mg Q6H PRN ORAL Mild Pain/Temp > 100.5 09/14/19 20:00 10/14/19 07:59 09/17/19 02:57 Amlodipine Besylate (Norvasc) 10 mg DAILY ORAL 09/17/19 16:00 10/17/19 15:59 09/22/19 08:53 Bupropion HCl (Wellbutrin SR) 100 mg DAILY ORAL 09/15/19 09:00 10/14/19 08:59 09/22/19 08:53 Chlorhexidine Gluconate (Crystal-Hex 2%) 1 applic DAILY@2000 TOPIC 09/17/19 20:00 10/17/19 19:59 09/21/19 21:03 Dextrose (Dextrose 50%) 25 ml Q30M PRN IV Hypoglycemia 09/14/19 19:30 10/13/19 18:59 Dextrose (Dextrose 50%) 50 ml Q30M PRN IV Hypoglycemia 09/14/19 19:30 10/13/19 18:59 Duloxetine HCl (Cymbalta) 30 mg DAILY ORAL 09/15/19 09:00 10/15/19 08:59 09/22/19 08:54 Heparin Sodium (Porcine) (Heparin 5000 units/ml) 5,000 units EVERY 8 HOURS SUBQ 09/14/19 22:00 10/13/19 21:59 09/22/19 15:08 Insulin Aspart (NovoLOG) BEFORE MEALS AND HS SUBQ 09/14/19 21:00 10/13/19 20:59 Lisinopril (PriniviL) 40 mg DAILY ORAL 09/15/19 09:00 10/14/19 08:59 09/22/19 08:54 Meropenem 1 gm/ Sodium Chloride 100 ml @ 200 mls/hr Q8HR IVPB 09/15/19 22:00 10/25/19 23:59 09/22/19 13:48 Metformin HCl (Glucophage) 500 mg BIDLS ORAL 09/16/19 12:34 10/16/19 12:33 09/20/19 17:25 Metoprolol Tartrate (Lopressor) 100 mg EVERY 12 HOURS ORAL 09/14/19 21:00 10/13/19 22:44 09/22/19 08:54 Morphine Sulfate (Morphine Sulfate) 2 mg Q6H PRN IVP For breakthru pain 09/21/19 07:45 09/28/19 07:44 09/22/19 16:20 Ondansetron HCl (Zofran) 4 mg Q6H PRN IVP Nausea & Vomiting 09/15/19 01:00 10/13/19 18:59 Oxybutynin Chloride (Ditropan) 5 mg DAILY ORAL 09/15/19 09:00 10/14/19 08:59 09/22/19 08:53 Quetiapine Fumarate (SEROqueL) 50 mg TID ORAL 09/22/19 09:00 10/14/19 12:59 09/22/19 08:54 Sodium Hypochlorite (Dakin's Half Strength) 1 applic DAILY TOPIC 09/15/19 18:00 10/15/19 17:59 09/22/19 08:54 Tramadol HCl (Ultram) 50 mg Q4H PRN ORAL Pain 09/21/19 07:45 09/28/19 07:44 Vancomycin HCl (Vanco rx to dose) 1 ea DAILY PRN MISC Per rx protocol 09/15/19 09:00 10/13/19 18:59 Vancomycin HCl 1 gm/Sodium Chloride 275 ml @ 183.708 mls/hr Q8HR IVPB 09/15/19 14:00 10/25/19 23:59 09/22/19 15:01 Reg Sue MD Sep 22, 2019 17:42
[2019-09-22 20:00] VITALS: BP 124/97
--- NOTE | 2019-09-22 21:30 | Progress Note ---
DATE: 09/22/2019 SUBJECTIVE: This is an elderly male, currently sitting better, comfortable and awaiting for LTAC but was not given authorization. The patient is physically doing better. Podiatry is on consult, on antibiotics. ASSESSMENT: 1. Osteomyelitis of foot. 2. Diabetes. 3. Depression. 4. Psychosis, improving. 5. Substance abuse. PLAN: 1. We will currently continue current treatment. 2. Continue antibiotic. 3. Continue wound care. 4. Sliding scale, Accu-Chek. 5. Discussed with the caseworker protective services. Shubham Perez M.D. DR: Jam JOB#: [id number] CC:
[2019-09-22] MEDS: Dyna-Hex 2% Top Sol 2oz TOPIC SCH (21:40)
[2019-09-23] VITALS: BP 143/79
[2019-09-23 04:00] VITALS: BP 140/87
[2019-09-23] MEDS: Morphine Sulfate 2mg/ml Inj(IV/IM USE ONLY) IVP PRN ×3 (04:55→18:50)
[2019-09-23 05:31] LABS: BASOPHILS % (AUTO) 1.4 % (0.0-2.0); EOSINOPHILS % (AUTO) 1.9 % (0.0-3.0); HEMATOCRIT 34.3 % (42.0-52.0); HEMOGLOBIN 12.1 G/DL (14.2-18.0); LYMPHOCYTES % (AUTO) 44.4 % (20.0-45.0); MEAN CORPUSCULAR VOLUME 85 FL (80-99); NEUTROPHILS % (AUTO) 43.2 % (45.0-75.0); PLATELET COUNT 335 K/UL (150-450); RED BLOOD COUNT 4.03 M/UL (4.70-6.10); RED CELL DISTRIBUTION WIDTH 13.8 % (11.6-14.8)
[2019-09-23 05:47] LABS: ALANINE AMINOTRANSFERASE 79 U/L (12-78); ALBUMIN 2.5 G/DL (3.4-5.0); ALBUMIN/GLOBULIN RATIO 0.5 (1.0-2.7); ALKALINE PHOSPHATASE 79 U/L (46-116); ANION GAP 6 mmol/L (5-15); ASPARTATE AMINO TRANSFERASE 67 U/L (15-37); BILIRUBIN,TOTAL 0.4 MG/DL (0.2-1.0); BLOOD UREA NITROGEN 17 mg/dL (7-18); CALCIUM 9.1 MG/DL (8.5-10.1); CARBON DIOXIDE 26 MMOL/L (21-32); CHLORIDE 103 MMOL/L (98-107); CREATININE 0.8 MG/DL (0.55-1.30); POTASSIUM 4.4 MMOL/L (3.5-5.1); SODIUM 135 MMOL/L (136-145)
[2019-09-23] MEDS: Vancomycin 1 GM in NS 275 ML IVPB SCH (06:00)
[2019-09-23] MEDS: Heparin 5000 units/ml inj SUBQ SCH ×3 (06:13→21:55)
[2019-09-23] MEDS: NovoLOG Insulin Flexpen SUBQ SCH ×4 (06:14→20:55)
[2019-09-23 08:00] VITALS: BP 123/76
[2019-09-23] MEDS: Dakin's 0.25% (Half Strength) 16oz TOPIC SCH (09:00)
[2019-09-23] MEDS ORDERED: Vancomycin 1.5gm/NS Premix q24h IVPB SCH (09:00)
[2019-09-23] MEDS: Metoprolol Tartrate 100mg tab ORAL SCH ×2 (09:07→20:54)
[2019-09-23] MEDS: BuPROPion SR 100mg tab ORAL SCH (09:08)
[2019-09-23] MEDS: DULoxetine 30mg cap ORAL SCH (09:08)
[2019-09-23] MEDS: Oxybutynin 5mg tab ORAL SCH (09:08)
[2019-09-23] MEDS: Lisinopril 20mg tab ORAL SCH (09:09)
[2019-09-23 12:00] VITALS: BP 106/70
[2019-09-23] MEDS: metFORMIN 500mg tab ORAL SCH ×2 (12:08→15:40)
--- NOTE | 2019-09-23 15:15 | Surgery Progress Note ---
Surgery Progress Note Subjective Additional Comments no acute events resting comfortable no comlplaints dressings changed unna boot Objective Last 24 Hour Vital Signs Date Time Temp Pulse Resp B/P (MAP) Pulse Ox O2 Delivery O2 Flow Rate FiO2 09/23/19 12:00 97.2 64 20 106/70 (82) 98 09/23/19 09:09 123/76 09/23/19 09:08 79 123/76 09/23/19 09:07 79 123/76 09/23/19 09:00 Room Air 09/23/19 08:00 98.4 79 20 123/76 (92) 98 09/23/19 04:00 97.5 67 16 140/87 (104) 98 09/23/19 00:00 98.2 63 18 143/79 (100) 100 09/22/19 21:42 71 131/85 09/22/19 21:00 Room Air 09/22/19 20:00 98.5 81 16 124/97 (106) 99 09/22/19 16:00 97.7 62 18 156/102 (120) 95 I&O Intake and Output 09/22/19 09/23/19 19:00 07:00 Intake Total 1775.000 ml 2075.000 ml Output Total 1575 ml Balance 1775.000 ml 500.000 ml Intake Oral 1600 ml IV Total 375.000 ml 475.000 ml Other 1400 ml Output Urine Total 1575 ml Dressing: dry Wound: clean Cardiovascular: RSR Respiratory: clear Abdomen: non-tender, present bowel sounds Extremities: no tenderness, no cyanosis, other - improving Laboratory Tests Test 09/23/19 05:00 White Blood Count 6.0 K/UL (4.8-10.8) Red Blood Count 4.03 M/UL (4.70-6.10) L Hemoglobin 12.1 G/DL (14.2-18.0) L Hematocrit 34.3 % (42.0-52.0) L Mean Corpuscular Volume 85 FL (80-99) Mean Corpuscular Hemoglobin 30.0 PG (27.0-31.0) Mean Corpuscular Hemoglobin Concent 35.2 G/DL (32.0-36.0) Red Cell Distribution Width 13.8 % (11.6-14.8) Platelet Count 335 K/UL (150-450) Mean Platelet Volume 5.1 FL (6.5-10.1) L Neutrophils (%) (Auto) 43.2 % (45.0-75.0) L Lymphocytes (%) (Auto) 44.4 % (20.0-45.0) Monocytes (%) (Auto) 9.0 % (1.0-10.0) Eosinophils (%) (Auto) 1.9 % (0.0-3.0) Basophils (%) (Auto) 1.4 % (0.0-2.0) Sodium Level 135 MMOL/L (136-145) L Potassium Level 4.4 MMOL/L (3.5-5.1) Chloride Level 103 MMOL/L (98-107) Carbon Dioxide Level 26 MMOL/L (21-32) Anion Gap 6 mmol/L (5-15) Blood Urea Nitrogen 17 mg/dL (7-18) Creatinine 0.8 MG/DL (0.55-1.30) Estimat Glomerular Filtration Rate > 60 mL/min (>60) Glucose Level 112 MG/DL (74-106) H Calcium Level 9.1 MG/DL (8.5-10.1) Total Bilirubin 0.4 MG/DL (0.2-1.0) Aspartate Amino Transf (AST/SGOT) 67 U/L (15-37) H Alanine Aminotransferase (ALT/SGPT) 79 U/L (12-78) H Alkaline Phosphatase 79 U/L (46-116) Total Protein 8.0 G/DL (6.4-8.2) Albumin 2.5 G/DL (3.4-5.0) L Globulin 5.5 g/dL Albumin/Globulin Ratio 0.5 (1.0-2.7) L Vancomycin Level Trough 18.0 ug/mL (5.0-12.0) H Plan Problems: (1) Sepsis Assessment & Plan: febrile, tachycardic, htn elevated lip improved abnormal lft's improved chronic wounds will provide local wound care needs improved hygiene okay for diet Abdominal US Negative for gallstones or dilated bile ducts Borderline hepatomegaly Incidental finding of small right renal cyst. will follow with recs. thank you improving d/c planning (2) Cellulitis in diabetic foot Assessment & Plan: Patient states that no one's been taking care of his wounds and the other people are fully responsible for and that he can do anything on his own and other people need take care of it and if they do not continue to get worse. Patient states that he has no interest in being involved in it and that he anticipates and expects other people to take care of it as it is their responsibility in their duties. Denies any nausea vomiting fever chills. I had a long discussion with the patient regards to the history of this wound. Patient states that it for months now and I believe this may actually be even a little longer as he will lose to it. I discussed with patient eventual plans in the past and he states that he has been recommended to have entered pension including a BKA possible AKA on the right lower extremity. He states that at that time he had no interest and still currently has no interest and will always refused to have amputation. Patient states he has no interest in ever having an amputation and that if people would continue to do their job and make it better he would get better on its own Pt presented on admission with large ulceration LLE and ulcers L knee. Clusters of ulcers L knee. Base of each wound is moist and viable. Small amt sanguineous exudate noted.Periwound skin tone is darker without induration or change in skin temp. At distal lower ext ,pt noted to have large ulcer medial/posterior/lateral extending to R heel and dorsal R foot. Base of wound is shallow with scattered fibrinous slough. Areas of soft necrosis noted to R heel. Borders that are irregular and macerated. Moderate amt brownish exudate. Wound is malodorous. Tx.Plan: Cleanse wound with Dakin's willie 0.25%. Apply Xeroform to wounds . Cover with ABD pads and wrap with Kerlix from Base of toes Daily and prn. Swab wounds L knee with Betadine. Cover with Optifoam drsg.Change Daily and prn. Impression: Abnormal marrow signal in the distal fibula, talus, and calcaneus, with associated contrast enhancement. Findings are highly suspicious for acute osteomyelitis Diffuse soft tissue edema and enhancement, likely secondary to cellulitis given stated clinical history. No definite drainable soft tissue abscess demonstrated. Podiatry eval Given findings unlikely able to salvage limb as he has acute osteo, extensive cellulitis, pus and tissue loss chronically. would recommend BKA. patient not interested in surgery at this time. explained risks, benefits, and alternatives. patient very clear that he will not consider surgery at this time and only local care plus abx PICC placed abx as per ID d/c planning (3) Pancreatitis Assessment & Plan: see above Findings: Exam is somewhat limited due to body habitus and bowel gas. Gallbladder is unremarkable, without stones, wall thickening, nor pericholecystic fluid. Sonographic Alatorre's sign is negative. Common bile duct measures 6 mm in diameter. No intrahepatic biliary ductal dilatation. Liver demonstrates normal echogenicity, no focal abnormality. It is somewhat enlarged. Portal vein and hepatic veins are patent. Pancreas is unremarkable. Spleen is poorly seen, grossly unremarkable. Left kidney measures 11.9 cm in length. Right kidney measures 11.2 cm length. Both kidneys demonstrate normal echogenicity. There is no hydronephrosis. There is a small right renal cyst demonstrated. . Abdominal aorta is partially obscured by bowel gas, visualized portions are non-aneurysmal . Impression: Somewhat limited exam, as described Negative for gallstones or dilated bile ducts Borderline hepatomegaly Incidental finding of small right renal cyst. Note inability to visualize portions of the abdominal aorta and suboptimal visualization of the spleen trend labs thank you trending down improving Farhat Joaquin Sep 23, 2019 15:15
[2019-09-23 16:00] VITALS: BP 94/51
[2019-09-23] MEDS ORDERED: ACETAMINOPHEN325 M1 ORAL (18:13)
[2019-09-23] MEDS ORDERED: AMLODIPINE BESY10 MG ORAL (18:15)
[2019-09-23] MEDS ORDERED: HIBICLENS118 ML TP (18:18)
[2019-09-23] MEDS ORDERED: CYMBALTA30 MG ORAL (18:20)
[2019-09-23] MEDS ORDERED: GABAPENTIN600 MG ORAL (18:22)
[2019-09-23] MEDS ORDERED: MEROPENEM1 GM IV (18:24)
[2019-09-23] MEDS ORDERED: QUETIAPINE FUMA50 MG ORAL (18:27)
[2019-09-23] MEDS ORDERED: TRAMADOL HCL50 MG ORAL (18:29)
[2019-09-23 20:00] VITALS: BP 145/81
[2019-09-23] MEDS ORDERED: DAPTOmycin 1,000 MG in NS 55 ML IV SCH (20:00)
[2019-09-23] MEDS: Dyna-Hex 2% Top Sol 2oz TOPIC SCH (20:54)
--- NOTE | 2019-09-23 21:15 | Progress Note ---
DATE: 09/23/2019 SUBJECTIVE: This is a young male, who currently came with right-sided leg ulcer and osteomyelitis. The patient received IV antibiotics. ID consult was obtained. The patient is physically doing better. Podiatry is also on the consult. The patient need IV antibiotics for 4 weeks and home health was set. The patient is going to go board [facility] DISCHARGE DIAGNOSES: 1. Osteomyelitis of right leg. 2. Cellulitis. 3. Diabetes. 4. Obesity. DIET RESTRICTION: On diet 1800-ADA diet. ACTIVITY: The patient is mostly bedbound and wheelchair bound. MEDICATIONS: See the list on discharge. Shubham Perez M.D. DR: ESTEFANY JOB#: [id number] CC:
[2019-09-24] VITALS: BP 109/67
--- NOTE | 2019-09-24 01:30 | Progress Note ---
DATE: 09/23/2019 SUBJECTIVE: The patient is in bed, no acute distress noted, resting, episodes of anxiety, able to answer the questions, at times tangential. MENTAL STATUS EXAMINATION: The patient is alert, oriented times self and place. Mood is depressed. Affect is constricted. Congruent with mood. Thought process, linear and goal oriented. Thought content, no suicidal or homicidal ideation. ASSESSMENT: 1. Psychotic disorder. 2. Methamphetamine use. PLAN: 1. Seroquel will be continued. 2. Provide the patient with reality orientation and supportive therapy. Fany Reyes M.D. DR: KERWIN JOB#: [id number] CC:
[2019-09-24 04:00] VITALS: BP 135/82
[2019-09-24] MEDS: Morphine Sulfate 2mg/ml Inj(IV/IM USE ONLY) IVP PRN ×2 (04:17→10:55)
[2019-09-24] MEDS: Heparin 5000 units/ml inj SUBQ SCH (05:47)
[2019-09-24] MEDS: NovoLOG Insulin Flexpen SUBQ SCH ×2 (06:30→11:30)
[2019-09-24 08:00] VITALS: BP 125/75
[2019-09-24] MEDS: BuPROPion SR 100mg tab ORAL SCH (08:15)
[2019-09-24] MEDS: Oxybutynin 5mg tab ORAL SCH (08:18)
[2019-09-24] MEDS: Metoprolol Tartrate 100mg tab ORAL SCH (08:18)
[2019-09-24] MEDS: DULoxetine 30mg cap ORAL SCH (08:18)
[2019-09-24] MEDS: Lisinopril 20mg tab ORAL SCH (08:18)
[2019-09-24] MEDS: Dyna-Hex 2% Top Sol 2oz TOPIC SCH (08:19)
[2019-09-24] MEDS: Dakin's 0.25% (Half Strength) 16oz TOPIC SCH (08:20)
[2019-09-24] MEDS: metFORMIN 500mg tab ORAL SCH (10:54)
[2019-09-24 11:33] LABS: CREATINE KINASE 102 U/L (26-308)
[2019-09-24 12:00] VITALS: BP 116/76
[2019-09-24] MEDS ORDERED: Tubing IV Secondary IV ONE (13:52)
[2019-09-24] MEDS ORDERED: NS 275ml ONE (13:52)
--- NOTE | 2019-09-24 17:00 | Progress Note ---
DATE: 09/24/2019 SUBJECTIVE: The patient is doing well. Much improved. No behavior issues noted. Calm and cooperative. MENTAL STATUS EXAMINATION: Alert, oriented x3. Mood is neutral. Affect is constricted, congruent with mood. Thought process is concrete. Thought content, no suicidal or homicidal ideation. ASSESSMENT: Stable. PLAN: 1. We will continue current medication. 2. Provide the patient with reality orientation and supportive therapy. Fany Reyes M.D. DR: LORI JOB#: [id number] CC:
--- NOTE | 2019-09-25 23:00 | Discharge Summary ---
Discharge Summary Discharge Summary _ DATE OF ADMISSION: 09/13/2019 DATE OF DISCHARGE: 09/24/2019 DISCHARGED BY: Dr. Peerz REASON FOR ADMISSION: 54 years old male with past medical history of hypertension, diabetes mellitus, substance abuse, presented to emergency department with registered dental assistant rda. Patient by himself had difficulty providing any information. Patient noted to have infected right foot. Patient apparently was not able to care for himself at home. Upon evaluation laboratory work-up revealed no leukocytosis,hemoglobin 11.3 hematocrit 33.8. Sodium 133 , stable other electrolytes and renal parameters. Troponin negative. Total bilirubin 1.2 ,direct bilirubin 0.8 .AST 49, ALT 53 . Albumin 2.8. Lipase 1088. Urine toxicology screen was positive for marijuana and amphetamine. Urinalysis revealed +2 protein , but no evidence of urinary tract infection. Chest x-ray revealed left basilar opacity , possibly representing atelectasis versus pneumonia. Right foot x-ray revealed no displaced fracture or dislocation. Soft tissue swelling noted. Patient subsequently admitted for further management. CONSULTANTS: railroad police officer ID specialist surgery Dr. Joaquin Podiatry dr. [place] psychiatrist [facility] COURSE: Patient admitted to monitored floor. Patient started on the IV hydration and empiric antibiotics. Venous duplex bilateral lower extremity revealed no evidence of acute DVT. Follow-up chest x-ray revealed no acute process. Supplemental oxygen provided and titrated to keep pulse oximetry above 92% . Pulmonary toilet was on standby as needed. Blood culture revealed diphtheroids and Staph coagulase negative. Repeated blood culture were negative. According to ID specialist due to history of the IV drug abuse and bacteremia , patient may have questionable endocarditis. Discovery Guide seen the patient for right foot infection. MRI of the right ankle revealed findings, highly suspicious for acute osteomyelitis. MRI of the right foot revealed diffusely edematous and enhancing soft tissues of the forefoot, most likely secondary to cellulitis. No definite evidence of abscess No definite findings to suggest acute osteomyelitis. Patient with peripheral vascular disease and venous stasis to the right lower extremity, status post trauma with underlying osteomyelitis and ulceration. Surgeon recommended BKA. Patient declined surgical intervention. Antibiotics provided as per r ID specialist recommendations. Patient presented on admission with large ulceration left lower extremity and ulcer on the left knee. Wound care provided as per surgeon recommendation. Continue wound care at home by home health nursing. PICC line was inserted for senior care IV antibiotics . Home health services were arranged for IV antibiotic . Patient will need total 6 weeks of antibiotic therapy . 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 Tachycardia was due to beta-john withdrawal and pain. Renal parameters and electrolytes were closely monitored, electrolytes corrected as needed , and nephrotoxins were avoided . Prior to discharge all electrolytes , LFT and renal f parameters stable. Lipase trended down to 299. Abdominal ultrasound revealed unremarkable pancreas. No gallstones or dilated bile ducts. Borderline hepatomegaly Reality orientation and supportive therapy provided. Current psychotropic psychiatric medication regimen was optimized as per psychiatrist. Patient clinically stabilized and was ready for discharge home with home health services for IV antibiotics and wound care. FINAL DIAGNOSES: Sepsis Altered mental status likely due to drugs Peripheral vascular disease Venous stasis right lower extremity Status post trauma with underlying ulceration right lower extremity Right ankle and right foot cellulitis Right ankle acute osteomyelitis Possible endocarditis Elevated lipase -resolved Substance abuse Diabetes mellitus Hypertension Anemia Psychotic disorder Dehydration Hypertensive heart disease Obesity Tachycardia due to beta-john withdrawal and pain DISCHARGE MEDICATIONS: See Medication Reconciliation list. DISCHARGE INSTRUCTIONS: Patient was discharged home with home health services. Follow up with primary care provider in one week. I have been assigned to dictate discharge summary for this account. I was not involved in the patient's management. Erin Masterson NP Sep 25, 2019 23:00
== END 2019-09-24 13:53 | disposition home or self-care (01) | DRG 871 ==
LOC: EMR 11:13 → 2W 11:55 → EDBEDREQ 12:09 → 4E 09-14 18:38
PROC: 06HM33Z Insertion of Infusion Device into Right Femoral Vein, Percutaneous Approach (ICD-10-PCS; principal; 2019-09-13)
PROC: B518ZZA Fluoroscopy of Superior Vena Cava, Guidance (ICD-10-PCS; 2019-09-18)
PROC: 02HV33Z Insertion of Infusion Device into Superior Vena Cava, Percutaneous Approach (ICD-10-PCS; 2019-09-18)
DX: A41.9 Sepsis, unspecified organism (principal); K85.90 Acute pancreatitis without necrosis or infection, unspecified; E87.1 Hypo-osmolality and hyponatremia; E44.0 Moderate protein-calorie malnutrition; L03.115 Cellulitis of right lower limb; L97.429 Non-pressure chronic ulcer of left heel and midfoot with unspecified severity; M86.171 Other acute osteomyelitis, right ankle and foot; E86.0 Dehydration; Z68.38 Body mass index [BMI] 38.0-38.9, adult; E66.9 Obesity, unspecified; R65.20 Severe sepsis without septic shock; E11.621 Type 2 diabetes mellitus with foot ulcer; I11.9 Hypertensive heart disease without heart failure; N31.9 Neuromuscular dysfunction of bladder, unspecified; R00.0 Tachycardia, unspecified; F29 Unspecified psychosis not due to a substance or known physiological condition; E11.51 Type 2 diabetes mellitus with diabetic peripheral angiopathy without gangrene; I87.8 Other specified disorders of veins; F15.10 Other stimulant abuse, uncomplicated; F12.10 Cannabis abuse, uncomplicated
CPT/HCPCS: 36415; 36569; 71045; 74018; 76700; 76937; 80048; 80053; 80202; 80307; 81003; 82150; 82248; 82550; 82553; 82962; 83605; 83690; 83880; 84484; 85025; 85610; 85651; 85730; 86140; 87040; 87181; 93005; 93306; 93970; 96365; 96368; 96375; 99285; 99291; A9585; J1815; J7030; S0077